=== PATIENT | male | born 1955 | race African-American/Black ===

== ENCOUNTER 2021-08-07 19:08 | Observation (INO) ==
--- NOTE | 2021-08-07 19:38 | Emergency Department Note ---
History of Present Illness General Chief complaint: Chest Pain Stated complaint: CHEST PAIN Time Seen by Provider: 08/07/21 19:20 Source: patient and RN notes reviewed Mode of arrival: EMS Limitations: no limitations History of Present Illness This patient is a 66-year-old male who was brought in from [facility] after having substernal chest pain starting around 530. He does have an extensive cardiac history including LA and stents and SVT. He said he has been feeling well lately and was sitting down reading a book when his chest started hurting he got very diaphoretic he described as pressure there is no radiation is no shortness of breath. They did an EKG which showed a regular complex tachycardia at a rate of 144 it does look narrow. Is likely SVT although could be a flutter. He was given aspirin and nitroglycerin x2 prior to arrival he converted and is now in normal sinus rhythm with a rate of 70 and has no chest pain or shortness of breath. He tells me his last stent was in June at [facility]. He denies any recent illness fever chills or cough no lower extremity pain or swelling he said the Covid vaccine has been tested multiple times recently and has not had Covid. No rash. No fall or trauma. 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 Home Medications Medication Instructions Recorded Confirmed Type aspirin 81 mg tablet,delayed 81 mg PO DAILY 08/07/21 08/07/21 History release (Aspirin Low Dose) atorvastatin 40 mg tablet 40 mg PO PM 08/07/21 08/07/21 History bisacodyl 5 mg tablet 20 mg PO DAILY 08/07/21 08/07/21 History calcium polycarbophil 625 mg 1,250 mg PO BID 08/07/21 08/07/21 History tablet (Fiber-Lax) ferrous sulfate 325 mg (65 mg 325 mg PO BID 08/07/21 08/07/21 History iron) tablet insulin NPH-regular 70-30 U-100 40 unit SUBCUT BID 08/07/21 08/07/21 History insulin 100 unit/mL subcutaneous pen (Novolin 70-30 FlexPen U-100 Insulin) isosorbide mononitrate 60 mg 60 mg PO DAILY 08/07/21 08/07/21 History tablet,extended release 24 hr lisinopril 20 mg tablet 20 mg PO DAILY 08/07/21 08/07/21 History metformin 1,000 mg tablet 1,000 mg PO BID 08/07/21 08/07/21 History metoprolol tartrate 25 mg tablet 12.5 mg PO BID 08/07/21 08/07/21 History nitroglycerin 0.4 mg sublingual 0.4 mg SUBLINGUAL UD 08/07/21 08/07/21 History tablet omeprazole 40 mg capsule,delayed 40 mg PO DAILY 08/07/21 08/07/21 History release ranolazine 500 mg tablet,extended 500 mg PO BID 08/07/21 08/07/21 History release,12 hr ticagrelor 90 mg tablet (Brilinta) 90 mg PO BID 08/07/21 08/07/21 History vitamin B complex 1 cap PO DAILY 08/07/21 08/07/21 History Allergies Allergy/AdvReac Type Severity Reaction Status Date / Time sulfamethoxazole Allergy Unknown Unverified 08/07/21 19:33 [From Bactrim] trimethoprim [From Bactrim] Allergy Unknown Unverified 08/07/21 19:33 Past Med/Surg History Social History Smoking Status: Never smoker Preferred Language: Romansh Feels Safe at Home: Yes Immunizations: Past medical historycardiac disease, stents, diabetes, hypertension, SVT AllergiesBactrim Social historyhe is a inmate at [facility] Review of Systems A total of 10 systems reviewed and were otherwise negative Physical Exam Vital Signs Vital Signs - 24 hr 08/07/21 19:15 08/07/21 19:30 08/07/21 19:47 Temperature 37.1 C Temperature Source Oral Pulse Rate 73 69 Pulse Rate from SpO2 Sensor 69 Pulse Rhythm Regular Respiratory Rate 20 16 Respiratory Effort / Characteristics Non-Labored Spontaneous Respiratory Depth Normal Respiratory Pattern Regular Blood Pressure 144/77 H 136/74 Blood Pressure Mean 99 94 Blood Pressure Position Lying Pulse Oximetry 99 99 99 Oxygen Delivery Method Room Air Room Air Room Air Sepsis Recent Fever Within 48 Hours No Sepsis New/Unexplained Change in Mental Status No Sepsis Action Taken by Nursing No Action Required 08/07/21 20:00 08/07/21 20:30 08/07/21 21:00 Temperature Temperature Source Pulse Rate 67 66 66 Pulse Rate from SpO2 Sensor 67 66 64 Pulse Rhythm Respiratory Rate 17 16 17 Respiratory Effort / Characteristics Respiratory Depth Respiratory Pattern Blood Pressure 142/77 H 126/71 111/71 Blood Pressure Mean 98 89 84 Blood Pressure Position Pulse Oximetry 99 100 100 Oxygen Delivery Method Room Air Room Air Room Air Sepsis Recent Fever Within 48 Hours Sepsis New/Unexplained Change in Mental Status Sepsis Action Taken by Nursing 08/07/21 21:30 08/07/21 23:01 Temperature Temperature Source Pulse Rate 67 71 Pulse Rate from SpO2 Sensor 67 71 Pulse Rhythm Respiratory Rate 21 18 Respiratory Effort / Characteristics Respiratory Depth Respiratory Pattern Blood Pressure 140/78 138/71 Blood Pressure Mean 98 93 Blood Pressure Position Pulse Oximetry 100 99 Oxygen Delivery Method Room Air Room Air Sepsis Recent Fever Within 48 Hours Sepsis New/Unexplained Change in Mental Status Sepsis Action Taken by Nursing General: Well developed well nourished middle-age male who appears in no acute distress, breathing comfortably on room air. Normal speech HEENT: Normal cephalic atraumatic. Pupils are equal round and reactive to light. Extraocular movements are intact. Oropharynx is pink with moist mucous membranes. No swelling of the mouth lips or tongue. Neck: Supple with a midline trachea. No meningeal signs or stiffness, no JVD or bruits. No Stridor. Chest: Clear to auscultation bilaterally. No wheezes or rhonchi. No increased work of breathing. Heart: Regular rate and rhythm without murmurs or gallops. Abdomen: Soft nontender, nondistended without rebound guarding or rigidity. Extremities: No cyanosis clubbing or edema. No calf tenderness or assymetry Spine/Back. Non tender to palpation. No CVA tenderness Skin: Good turgor without rashes. Neurologic exam: Cranial nerves two through 12 are intact. Motor and sensation are intact and symmetrical throughout. Medical Decision Making Differential Diagnosis Acute coronary syndrome, arrhythmia, electrolyte or metabolic abnormality, CHF Medical Records Attestation: I reviewed the patient's medical records. Home Medications Current Medication List: was personally reviewed by me Laboratory Data Attestation: I reviewed the patient's lab results. Result diagrams: 08/07/21 19:52 08/07/21 19:52 Lab Results 08/07/21 08/07/21 08/07/21 Range/Units 19:52 19:52 19:52 WBC 5.70 (4.8-10.8) K/uL RBC 4.35 L (4.7-6.1) M/uL Hgb 10.6 L (14.0-18.0) g/dL Hct 33.3 L (42-52) % MCV 76.6 L (80-100) fL MCH 24.4 L (25-34) pg MCHC 31.8 L (32-36) g/dL RDW Std Deviation 44.3 (36.4-46.3) fL RDW Coeff of Berry 15.7 H (11.5-14.5) % Plt Count 254 (130-400) K/uL MPV 9.6 (7.4-10.4) fL Immature Gran % (Auto) 0.4 % Neut % (Auto) 53.2 % Lymph % (Auto) 34.4 % Lyman % (Auto) 8.8 % Eos % (Auto) 3.0 % Baso % (Auto) 0.2 % Neut # (Auto) 3.04 (1.4-6.5) K/uL Lymph # (Auto) 1.96 (1.2-3.4) K/uL Lyman # (Auto) 0.50 (0.11-0.59) K/uL Eos # (Auto) 0.17 (0-0.5) K/uL Baso # (Auto) 0.01 (0-0.2) K/uL Immature Gran # (Auto) 0.02 (0.00-0.02) K/uL PT 9.9 (9.0-12.0) Seconds INR 1.0 (0.9-1.1) APTT 24.6 (21.0-31.0) Seconds PTT Ratio 0.9 Sodium 140 (136-145) mmol/L Potassium 4.5 (3.5-5.1) mmol/L Chloride 110 H (98-107) mmol/L Carbon Dioxide 27 (21-32) mmol/L Anion Gap 3.0 (3-11) BUN 19 H (7-18) mg/dl Creatinine 1.75 H (0.6-1.4) mg/dl Est Cr Clr Drug Dosing Not Reportable Est GFR ( Amer) 45.7 ml/min Est GFR (Non-Af Amer) 39.4 ml/min BUN/Creatinine Ratio 11.1 (10-20) Glucose 160 H (70-99) mg/dl Calcium 8.8 (8.5-10.1) mg/dl Magnesium (1.8-2.4) mg/dl Total Bilirubin 0.4 (0.2-1) mg/dl AST 24 (15-37) U/L ALT 20 (12-78) U/L Alkaline Phosphatase 61 (45-117) U/L Troponin I < 0.015 (0-0.045) ng/ml Total Protein 7.7 (6.4-8.2) gm/dl Albumin 3.7 (3.4-5.0) gm/dl Globulin 4.0 (2.5-4.0) gm/dl Albumin/Globulin Ratio 0.9 (0.9-2) Lipase 270 (73-393) U/L TSH (0.300-4.500) uIu/ml COVID-19 Eval Order SARS-CoV-2 (PCR) (Negative) 08/07/21 08/07/21 08/07/21 Range/Units 19:52 22:20 22:20 WBC (4.8-10.8) K/uL RBC (4.7-6.1) M/uL Hgb (14.0-18.0) g/dL Hct (42-52) % MCV (80-100) fL MCH (25-34) pg MCHC (32-36) g/dL RDW Std Deviation (36.4-46.3) fL RDW Coeff of Berry (11.5-14.5) % Plt Count (130-400) K/uL MPV (7.4-10.4) fL Immature Gran % (Auto) % Neut % (Auto) % Lymph % (Auto) % Lyman % (Auto) % Eos % (Auto) % Baso % (Auto) % Neut # (Auto) (1.4-6.5) K/uL Lymph # (Auto) (1.2-3.4) K/uL Lyman # (Auto) (0.11-0.59) K/uL Eos # (Auto) (0-0.5) K/uL Baso # (Auto) (0-0.2) K/uL Immature Gran # (Auto) (0.00-0.02) K/uL PT (9.0-12.0) Seconds INR (0.9-1.1) APTT (21.0-31.0) Seconds PTT Ratio Sodium (136-145) mmol/L Potassium (3.5-5.1) mmol/L Chloride (98-107) mmol/L Carbon Dioxide (21-32) mmol/L Anion Gap (3-11) BUN (7-18) mg/dl Creatinine (0.6-1.4) mg/dl Est Cr Clr Drug Dosing Est GFR ( Amer) ml/min Est GFR (Non-Af Amer) ml/min BUN/Creatinine Ratio (10-20) Glucose (70-99) mg/dl Calcium (8.5-10.1) mg/dl Magnesium 2.1 (1.8-2.4) mg/dl Total Bilirubin (0.2-1) mg/dl AST (15-37) U/L ALT (12-78) U/L Alkaline Phosphatase (45-117) U/L Troponin I (0-0.045) ng/ml Total Protein (6.4-8.2) gm/dl Albumin (3.4-5.0) gm/dl Globulin (2.5-4.0) gm/dl Albumin/Globulin Ratio (0.9-2) Lipase (73-393) U/L TSH 0.425 (0.300-4.500) uIu/ml COVID-19 Eval Order Covid19 at [facility] SARS-CoV-2 (PCR) NEGATIVE (Negative) 08/07/21 Range/Units 22:54 WBC (4.8-10.8) K/uL RBC (4.7-6.1) M/uL Hgb (14.0-18.0) g/dL Hct (42-52) % MCV (80-100) fL MCH (25-34) pg MCHC (32-36) g/dL RDW Std Deviation (36.4-46.3) fL RDW Coeff of Berry (11.5-14.5) % Plt Count (130-400) K/uL MPV (7.4-10.4) fL Immature Gran % (Auto) % Neut % (Auto) % Lymph % (Auto) % Lyman % (Auto) % Eos % (Auto) % Baso % (Auto) % Neut # (Auto) (1.4-6.5) K/uL Lymph # (Auto) (1.2-3.4) K/uL Lyman # (Auto) (0.11-0.59) K/uL Eos # (Auto) (0-0.5) K/uL Baso # (Auto) (0-0.2) K/uL Immature Gran # (Auto) (0.00-0.02) K/uL PT (9.0-12.0) Seconds INR (0.9-1.1) APTT (21.0-31.0) Seconds PTT Ratio Sodium (136-145) mmol/L Potassium (3.5-5.1) mmol/L Chloride (98-107) mmol/L Carbon Dioxide (21-32) mmol/L Anion Gap (3-11) BUN (7-18) mg/dl Creatinine (0.6-1.4) mg/dl Est Cr Clr Drug Dosing Est GFR ( Amer) ml/min Est GFR (Non-Af Amer) ml/min BUN/Creatinine Ratio (10-20) Glucose (70-99) mg/dl Calcium (8.5-10.1) mg/dl Magnesium (1.8-2.4) mg/dl Total Bilirubin (0.2-1) mg/dl AST (15-37) U/L ALT (12-78) U/L Alkaline Phosphatase (45-117) U/L Troponin I < 0.015 (0-0.045) ng/ml Total Protein (6.4-8.2) gm/dl Albumin (3.4-5.0) gm/dl Globulin (2.5-4.0) gm/dl Albumin/Globulin Ratio (0.9-2) Lipase (73-393) U/L TSH (0.300-4.500) uIu/ml COVID-19 Eval Order SARS-CoV-2 (PCR) (Negative) Imaging Data Attestation: I personally reviewed and interpreted this imaging study as follows: My Impression: Chest x-rayno acute infiltrate, failure, pneumothorax seen Radiologist's Impression: Chest X-Ray 08/07/21 19:30 XR chest 1V portable INDICATION: MN ^Y ^Chest Pain . TECHNIQUE: Single frontal radiograph of the chest was obtained. Comparison: None available at the time of this dictation. FINDINGS: No lines and tubes are seen. The cardiomediastinal silhouette is normal. The lungs are clear. No evidence of pleural effusion or pneumothorax. IMPRESSION: No acute chest disease. ACT 112: Negative or not required by law. Electronically signed by: Blu Jurado M.D. 08/07/2021 7:46 PM ECG Data Attestation: I personally reviewed and interpreted this ECG as follows: Indication: + chest pain Rate (beats per minute): 69 Rhythm: + normal sinus ECG Intervals/blocks: + Normal QRS, + Normal QT and + Normal DE ECG ST segments: + Nonspecific ST abnormalities ECG Findings: no PACs or no PVCs Comparison ECG Date: no prior available MDM Narrative This patient comes in after having chest pain and a rapid heart rate he is feeling better now. He does have an extensive cardiac history. 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 He has received aspirin nitroglycerin prior to arrival. IV access established, EKG, chest x-ray, and multiple blood test was obtained. He was reassessed frequently. EKG does not show any definite is chemia. When compared the EKG to the one done in [place] it is significantly improved he was in a narrow complex tachycardia which was likely SVT but could have been a flutter. It was definitely regular and narrow. He is remained stable his troponin is normal here. His chest x-ray does not suggest congestive heart failure pneumonia or pneumothorax he has no acute electrolyte or metabolic abnormalities. Given his cardiac history I do think he needs to be admitted/observe for cardiac evaluation and monitoring. I have consulted Dr. Ribera who saw the patient in ER for these measures Continuous cardiac monitoring: An order was placed in EMR for continuous cardiac monitoring. Upon my interpretation he was noted to be in normal sinus rhythm with a pulse of 70 Impression & Plan Chest pain, SVT (supraventricular tachycardia), History of coronary artery disease, Lab test negative for COVID-19 virus Discharge Plan Visit Data Chief Complaint: Chest Pain Stated Complaint: CHEST PAIN ED Provider: Justice Cardoso Discharge Problem: Chest pain, SVT (supraventricular tachycardia), History of coronary artery disease, Lab test negative for COVID-19 virus Forms Stand Alone Forms: My [facility] Prescriptions Prescriptions: No Action atorvastatin 40 mg Tablet 40 mg PO PM RF: 0 lisinopril 20 mg Tablet 20 mg PO DAILY RF: 0 omeprazole 40 mg Capsule,Delayed Release(Dr/Ec) 40 mg PO DAILY RF: 0 aspirin [Aspirin Low Dose] 81 mg Tablet,Delayed Release (Dr/Ec) 81 mg PO DAILY RF: 0 isosorbide mononitrate 60 mg Tablet Extended Release 24 Hr 60 mg PO DAILY RF: 0 ferrous sulfate 325 mg (65 mg iron) Tablet 325 mg PO BID RF: 0 metformin 1,000 mg Tablet 1,000 mg PO BID RF: 0 calcium polycarbophil [Fiber-Lax] 625 mg Tablet 1,250 mg PO BID RF: 0 nitroglycerin 0.4 mg Tablet, Sublingual 0.4 mg sublingual UD RF: 0 vitamin B complex Capsule 1 cap PO DAILY RF: 0 bisacodyl 5 mg Tablet 20 mg PO DAILY RF: 0 metoprolol tartrate 25 mg Tablet 12.5 mg PO BID RF: 0 Novolin 70-30 FlexPen U-100 100 unit/mL (70-30) Insulin Pen 40 unit SUBCUT BID RF: 0 ranolazine 500 mg Tablet Extended Release 12 Hr 500 mg PO BID RF: 0 Brilinta 90 mg Tablet 90 mg PO BID RF: 0 Referrals Referrals: Perez SOLIS [Primary Care Provider] - Discharge Problem: Chest pain Qualifiers: Chest pain type: precordial pain Qualified Code(s): R07.2 - Precordial pain
--- NOTE | 2021-08-07 19:48 | XRay Report ---
XR chest 1V portable INDICATION: MN ^Y ^Chest Pain . TECHNIQUE: Single frontal radiograph of the chest was obtained. Comparison: None available at the time of this dictation. FINDINGS: No lines and tubes are seen. The cardiomediastinal silhouette is normal. The lungs are clear. No evid ence of pleural effusion or pneumothorax. IMPRESSION: No acute chest disease. ACT 112: Negative or not required by law. Electronically signed by: Blu Jurado M.D. 08/07/2021 7:46 PM
[2021-08-07 20:08] LABS: Basophils # (auto) 0.01 K/uL (0-0.2); Basophils % (auto) 0.2 %; Eosinophils # (auto) 0.17 K/uL (0-0.5); Hematocrit (blood only) 33.3 % (42-52); Hemoglobin 10.6 g/dL (14.0-18.0); Immature Granulocytes # (auto) 0.02 K/uL (0.00-0.02); Immature Granulocytes % (auto) 0.4 %; Lymphocytes # (auto) 1.96 K/uL (1.2-3.4); Lymphocytes % (auto) 34.4 %; Mean Corpuscular Hemoglobin 24.4 pg (25-34); Mean Corpuscular Hgb Conc 31.8 g/dL (32-36); Mean Corpuscular Volume 76.6 fL (80-100); Mean Platelet Volume 9.6 fL (7.4-10.4); Monocytes % (auto) 8.8 %; Neutrophils # (auto) 3.04 K/uL (1.4-6.5); Neutrophils % (auto) 53.2 %; Platelet Count 254 K/uL (130-400); RDW Coefficient of Variation 15.7 % (11.5-14.5); RDW Standard Deviation 44.3 fL (36.4-46.3); Red Blood Count 4.35 M/uL (4.7-6.1)
[2021-08-07 20:19] LABS: Partial Thromboplastin Ratio 0.9; Partial Thromboplastin Time 24.6 Seconds (21.0-31.0); Prothrombin Time 9.9 Seconds (9.0-12.0)
[2021-08-07 20:25] LABS: Alanine Aminotransferase 20 U/L (12-78); Albumin Level 3.7 gm/dl (3.4-5.0); Aspartate Aminotransferase 24 U/L (15-37); BUN Creatinine Ratio 11.1 (10-20); Blood Urea Nitrogen 19 mg/dl (7-18); Calcium 8.8 mg/dl (8.5-10.1); Carbon Dioxide 27 mmol/L (21-32); Chloride 110 mmol/L (98-107); Est GFR (African American) 45.7 ml/min; Est GFR (Non-African American) 39.4 ml/min; Glucose 160 mg/dl (70-99); Lipase 270 U/L (73-393); Potassium 4.5 mmol/L (3.5-5.1); Sodium 140 mmol/L (136-145)
[2021-08-07 20:30] LABS: Albumin Globulin Ratio 0.9 (0.9-2); Alkaline Phosphatase 61 U/L (45-117); Bilirubin,Total 0.4 mg/dl (0.2-1); Total Protein 7.7 gm/dl (6.4-8.2); Troponin I < 0.015 ng/ml (0-0.045)
[2021-08-07 21:24] LABS: Magnesium 2.1 mg/dl (1.8-2.4); Thyroid Stimulating Hormone 0.425 uIu/ml (0.300-4.500)
--- NOTE | 2021-08-07 21:25 | History & Physical Report ---
Date of Service August 07, 2021 Assessment & Plan (1) Chest pain: Plan: ACS vs tachyarrhythmia (PSVT) hx CAD status post stent hypertension, slight elevated hyperlipidemia, on statin Rx ARF, unknown duration DM2 insulin requiring, unknown baseline control chronic anemia, unknown baseline colon cancer status post surgery OBS PCU Follow troponin TTE, cardiology consult Re: Chest pain Retrieve recent outpatient records from patient's photographers' model (Dr. Fernandez). Basal insulin, ISS BG goal 1 10-1 40, check hemoglobin A1c Check lipid profile DVT prophylaxis. Heparin subcu Full code Text document was generated using [employer] voice recognition software. It may contain grammatical or spelling errors. Kindly contact undersigned for clarification of any documentation item in question. History of Present Illness Chief Complaint: Chest pain Primary Care Provider: IRMA Todd History obtained from patient and records. Medical history significant for CAD status post stent, hypertension, hyperlipidemia, PSVT, DM2 insulin requiring, chronic anemia (unknown baseline), colon cancer status post surgery, GERD. Patient was reading a book in [place] today when he noted substernal pain described as pressure like causing him to belch accompanied by diaphoresis and sweatiness. No cough, no shortness of breath. Symptoms are reminiscent of heart attack episode. Last episode was a few weeks ago. Patient's photographers' model from [place] contemplating putting a "heart monitor on him" for fast heartbeat. Narrow complex tachycardia on EKG done at the [facility] as per documentation. Chest pain relieved by aspirin and nitroglycerin administered at the present. Patient currently comfortable. Medical History as above Surgical History : Bowel surgery Family History : DM Personal/Social history : Non-smoker, no EtOH intake, prior work as a [employer] Allergies Allergy/AdvReac Type Severity Reaction Status Date / Time sulfamethoxazole Allergy Unknown Unverified 08/07/21 19:33 [From Bactrim] trimethoprim [From Bactrim] Allergy Unknown Unverified 08/07/21 19:33 Home Medications Medication Instructions Recorded Confirmed Type aspirin 81 mg tablet,delayed 81 mg PO DAILY 08/07/21 08/07/21 History release (Aspirin Low Dose) atorvastatin 40 mg tablet 40 mg PO PM 08/07/21 08/07/21 History bisacodyl 5 mg tablet 20 mg PO DAILY 08/07/21 08/07/21 History calcium polycarbophil 625 mg 1,250 mg PO BID 08/07/21 08/07/21 History tablet (Fiber-Lax) ferrous sulfate 325 mg (65 mg 325 mg PO BID 08/07/21 08/07/21 History iron) tablet insulin NPH-regular 70-30 U-100 40 unit SUBCUT BID 08/07/21 08/07/21 History insulin 100 unit/mL subcutaneous pen (Novolin 70-30 FlexPen U-100 Insulin) isosorbide mononitrate 60 mg 60 mg PO DAILY 08/07/21 08/07/21 History tablet,extended release 24 hr lisinopril 20 mg tablet 20 mg PO DAILY 08/07/21 08/07/21 History metformin 1,000 mg tablet 1,000 mg PO BID 08/07/21 08/07/21 History metoprolol tartrate 25 mg tablet 12.5 mg PO BID 08/07/21 08/07/21 History nitroglycerin 0.4 mg sublingual 0.4 mg SUBLINGUAL UD 08/07/21 08/07/21 History tablet omeprazole 40 mg capsule,delayed 40 mg PO DAILY 08/07/21 08/07/21 History release ranolazine 500 mg tablet,extended 500 mg PO BID 08/07/21 08/07/21 History release,12 hr ticagrelor 90 mg tablet (Brilinta) 90 mg PO BID 08/07/21 08/07/21 History vitamin B complex 1 cap PO DAILY 08/07/21 08/07/21 History Past Med/Surg History Social History Smoking Status: Never smoker Preferred Language: Anguill[place] Feels Safe at Home: Yes Review of Systems Review of Systems: As per HPI, all 10 systems reviewed, all other ROS negative Physical Exam Physical Exam: GENERAL: Comfortable, obese, pleasant, no respiratory distress SKIN: Pallor, warm HEENT: Pale palpebral conjunctivae, no ptosis, moist buccal mucosa NECK : Supple, short neck, no tenderness CHEST : CTA, no tenderness HEART : RRR, no obvious murmurs ABDOMEN: Some distention, nontender EXTREMITIES : Minimal LE swelling, no LE tenderness, no other conspicuous deformities noted NEUROLOGIC : Coherent, no facial asymmetry, no other gross focality Results & Data Results & Data ([facility]) Vital Signs (Past 12 Hours) Vital Signs Temp Pulse Resp BP Pulse Ox 08/07/21 19:47 99 08/07/21 19:15 37.1 C 73 20 144/77 H 99 Laboratory Results Laboratory Results WBC 5.70 K/uL (4.8-10.8) 08/07/21 19:52 RBC 4.35 M/uL (4.7-6.1) L 08/07/21 19:52 Hgb 10.6 g/dL (14.0-18.0) L 08/07/21 19:52 Hct 33.3 % (42-52) L 08/07/21 19:52 MCV 76.6 fL (80-100) L 08/07/21 19:52 MCH 24.4 pg (25-34) L 08/07/21 19:52 MCHC 31.8 g/dL (32-36) L 08/07/21 19:52 RDW Std Deviation 44.3 fL (36.4-46.3) 08/07/21 19:52 RDW Coeff of Berry 15.7 % (11.5-14.5) H 08/07/21 19:52 Plt Count 254 K/uL (130-400) 08/07/21 19:52 MPV 9.6 fL (7.4-10.4) 08/07/21 19:52 Immature Gran % (Auto) 0.4 % 08/07/21 19:52 Neut % (Auto) 53.2 % 08/07/21 19:52 Lymph % (Auto) 34.4 % 08/07/21 19:52 Crowley % (Auto) 8.8 % 08/07/21 19:52 Eos % (Auto) 3.0 % 08/07/21 19:52 Baso % (Auto) 0.2 % 08/07/21 19:52 Neut # (Auto) 3.04 K/uL (1.4-6.5) 08/07/21 19:52 Lymph # (Auto) 1.96 K/uL (1.2-3.4) 08/07/21 19:52 Crowley # (Auto) 0.50 K/uL (0.11-0.59) 08/07/21 19:52 Eos # (Auto) 0.17 K/uL (0-0.5) 08/07/21 19:52 Baso # (Auto) 0.01 K/uL (0-0.2) 08/07/21 19:52 Immature Gran # (Auto) 0.02 K/uL (0.00-0.02) 08/07/21 19:52 PT 9.9 Seconds (9.0-12.0) 08/07/21 19:52 INR 1.0 (0.9-1.1) 08/07/21 19:52 APTT 24.6 Seconds (21.0-31.0) 08/07/21 19:52 PTT Ratio 0.9 08/07/21 19:52 Sodium 140 mmol/L (136-145) 08/07/21 19:52 Potassium 4.5 mmol/L (3.5-5.1) 08/07/21 19:52 Chloride 110 mmol/L (98-107) H 08/07/21 19:52 Carbon Dioxide 27 mmol/L (21-32) 08/07/21 19:52 Anion Gap 3.0 (3-11) 08/07/21 19:52 BUN 19 mg/dl (7-18) H 08/07/21 19:52 Creatinine 1.75 mg/dl (0.6-1.4) H 08/07/21 19:52 Est Cr Clr Drug Dosing Not Reportable 08/07/21 19:52 Est GFR ( Amer) 45.7 ml/min 08/07/21 19:52 Est GFR (Non-Af Amer) 39.4 ml/min 08/07/21 19:52 BUN/Creatinine Ratio 11.1 (10-20) 08/07/21 19:52 Glucose 160 mg/dl (70-99) H 08/07/21 19:52 Calcium 8.8 mg/dl (8.5-10.1) 08/07/21 19:52 Magnesium 2.1 mg/dl (1.8-2.4) 08/07/21 19:52 Total Bilirubin 0.4 mg/dl (0.2-1) 08/07/21 19:52 AST 24 U/L (15-37) 08/07/21 19:52 ALT 20 U/L (12-78) 08/07/21 19:52 Alkaline Phosphatase 61 U/L (45-117) 08/07/21 19:52 Troponin I < 0.015 ng/ml (0-0.045) 08/07/21 19:52 Total Protein 7.7 gm/dl (6.4-8.2) 08/07/21 19:52 Albumin 3.7 gm/dl (3.4-5.0) 08/07/21 19:52 Globulin 4.0 gm/dl (2.5-4.0) 08/07/21 19:52 Albumin/Globulin Ratio 0.9 (0.9-2) 08/07/21 19:52 Lipase 270 U/L (73-393) 08/07/21 19:52 TSH 0.425 uIu/ml (0.300-4.500) 08/07/21 19:52 Impressions Chest X-Ray 08/07/21 19:30 XR chest 1V portable INDICATION: MN ^Y ^Chest Pain . TECHNIQUE: Single frontal radiograph of the chest was obtained. Comparison: None available at the time of this dictation. FINDINGS: No lines and tubes are seen. The cardiomediastinal silhouette is normal. The lungs are clear. No evidence of pleural effusion or pneumothorax. IMPRESSION: No acute chest disease. ACT 112: Negative or not required by law. Electronically signed by: Blu Jurado M.D. 08/07/2021 7:46 PM Diagnostic Findings EKG as per my interpretation : Rate 70, NSR, normal axis, T wave abnormalities lateral leads (1) Chest pain Chest pain type: precordial pain Qualified Code(s): R07.2 - Precordial pain
[2021-08-07] MEDS ORDERED: SODIUM CHLORIDE 0.9% 1000ML 1,000 ML IV ONE (21:29)
[2021-08-08] MEDS ORDERED: POLYETHYLENE (MIRALAX) 17 GM PACK PO PRN ×2 (00:54→05:21)
[2021-08-08] MEDS ORDERED: DOCUSATE SODIUM/SENNA 50/8.6MG TAB PO SCH (00:55)
[2021-08-08] MEDS ORDERED: PROMETHAZINE HCL 12.5 MG in SODIUM CHLORIDE 0.9% 50 ML IV PRN (04:52)
[2021-08-08] MEDS ORDERED: HYDROmorphone INJ 0.5 MG/0.5 ML SYR IV PRN (04:52)
[2021-08-08] MEDS ORDERED: CARBOHYDRATES FOR HYPOGLYCEMIA PO PRN (04:52)
[2021-08-08] MEDS ORDERED: LORazepam 0.5 MG/1 ML VIAL IV PRN (04:52)
[2021-08-08] MEDS ORDERED: ACETAMINOPHEN 325 MG TAB PO PRN (04:52)
[2021-08-08] MEDS ORDERED: GLUCAGON FOR INJ 1 MG VIAL SQ PRN (04:52)
[2021-08-08] MEDS ORDERED: GLUCOSE 10 TABS/TUBE PO PRN (04:52)
[2021-08-08] MEDS ORDERED: traMADol HCL 50 MG TABLET PO PRN (04:52)
[2021-08-08] MEDS ORDERED: GLUCOSE 40% GEL 15 GM TUBE PO PRN (04:52)
[2021-08-08] MEDS ORDERED: DEXTROSE 50% 50 ML SYRINGE IV PRN (04:52)
[2021-08-08] MEDS ORDERED: NITROGLYCERIN SL 0.4 MG/TAB TAB SL PRN (04:52)
[2021-08-08] MEDS: HEPARIN SOD 5,000 UNIT/0.5 ML VIAL SQ SCH ×3 (06:16→22:27)
[2021-08-08 08:12] LABS: Basophils # (auto) 0.02 K/uL (0-0.2); Basophils % (auto) 0.3 %; Eosinophils # (auto) 0.19 K/uL (0-0.5); Eosinophils % (auto) 3.1 %; Hematocrit (blood only) 34.8 % (42-52); Hemoglobin 10.8 g/dL (14.0-18.0); Immature Granulocytes # (auto) 0.01 K/uL (0.00-0.02); Immature Granulocytes % (auto) 0.2 %; Lymphocytes # (auto) 2.08 K/uL (1.2-3.4); Mean Corpuscular Volume 77.3 fL (80-100); Monocytes # (auto) 0.55 K/uL (0.11-0.59); Neutrophils # (auto) 3.27 K/uL (1.4-6.5); Neutrophils % (auto) 53.4 %; Platelet Count 266 K/uL (130-400); RDW Coefficient of Variation 15.8 % (11.5-14.5); RDW Standard Deviation 44.7 fL (36.4-46.3); White Blood Count 6.12 K/uL (4.8-10.8)
[2021-08-08 08:21] LABS: Partial Thromboplastin Time 25.9 Seconds (21.0-31.0)
[2021-08-08 08:38] LABS: BUN Creatinine Ratio 11.2 (10-20); Blood Urea Nitrogen 17 mg/dl (7-18); Calcium 8.8 mg/dl (8.5-10.1); Carbon Dioxide 25 mmol/L (21-32); Chloride 108 mmol/L (98-107); Est GFR (African American) 53.7 ml/min; Est GFR (Non-African American) 46.4 ml/min; Glucose 128 mg/dl (70-99); Potassium 4.4 mmol/L (3.5-5.1); Sodium 141 mmol/L (136-145)
[2021-08-08 08:43] LABS: Troponin I < 0.015 ng/ml (0-0.045)
[2021-08-08] MEDS ORDERED: BISACODYL 5 MG PO SCH (09:00)
[2021-08-08] MEDS ORDERED: INSULIN GLARGINE SOLOSTAR 100 UNITS/ML 3 ML PEN SQ SCH (09:00)
[2021-08-08] MEDS: INSULIN GLARGINE SOLOSTAR 100 UNITS/ML 3 ML PEN SQ SCH ×2 (09:28→20:10)
[2021-08-08] MEDS: INSULIN ASPART 100 UNITS/ML 3 ML PEN SC SCH ×4 (09:28→20:10)
[2021-08-08] MEDS: TICAGRELOR 90 MG TAB PO SCH ×2 (09:29→20:06)
[2021-08-08] MEDS: PANTOprazole 40 MG TAB PO SCH (09:29)
[2021-08-08] MEDS: METOPROLOL TARTRATE 25 MG TAB PO SCH ×2 (09:29→20:07)
[2021-08-08] MEDS: VITAMIN B COMPLEX TAB PO SCH (09:29)
[2021-08-08] MEDS: RANOLAZINE 500 MG ER TAB PO SCH ×2 (09:29→20:06)
[2021-08-08] MEDS: ASPIRIN 81 MG ECTAB PO SCH (09:30)
[2021-08-08] MEDS: FERROUS SULFATE 325 MG TAB PO SCH ×2 (09:30→20:06)
[2021-08-08] MEDS: DOCUSATE SODIUM/SENNA 50/8.6MG TAB PO SCH ×2 (09:30→20:08)
[2021-08-08] MEDS: ISOSORBIDE MONO EXTENDED REL 60 MG TABCR PO SCH (09:30)
[2021-08-08 10:07] LABS: Appearance Urine Clear (Clear); Bacteria Urine Automated Negative (Negative); Bilirubin Urine Negative (Negative); Blood Urine Negative (Negative); Color Urine Yellow; Epithelial Cell Urine Auto 0-5 /lpf (0-5); Glucose Urine UA 1+ (Negative); Ketones Urine Negative (Negative); Leukocyte Esterase Urine Negative (Negative); Nitrite Urine Negative (Negative); Protein Urine 1+ (Negative); RBC Urine Automated 0-4 /hpf (0-4); Specific Gravity Urine 1.019 (1.000-1.030); Urobilinogen Urine Negative (Negative); WBC Urine Automated 0 /hpf (0-5); pH Urine 5.5 (4.5-7.5)
--- NOTE | 2021-08-08 10:27 | Cardiology Consultation ---
Date of Consultation August 08, 2021 Assessment & Plan (1) Chest pain: (2) SVT (supraventricular tachycardia): (3) History of coronary artery disease: (4) History of coronary artery stent placement: (5) Aortic valve sclerosis: 66-year-old patient with history of coronary disease and possible supraventricular tachycardia presents with chest discomfort. Symptoms suggesting possible paroxysmal tachydysrhythmia prompting anginal symptoms. His cardiac enzymes are undetectable. Baseline ECG with T wave inversion in lead I and aVL, however, no prior ECGs available for comparison. No regional wall motion abnormalities on echocardiogram. Per discussion with patient there is a possible plan for implantable loop recorder. I have contacted his outpatient power saw mechanic office, Dr. Fernandez, regarding records. Obtain records from [facility] regard recent PCI. Continue dual antiplatelet therapy and antianginal medications including beta- nasir, isosorbide monohydrate, and Ranexa. Review records and consider referral to electrophysiology to consider EPS versus implantable loop recorder. In regard to aortic valve abnormality visualized, recommend blood cultures x2. History of Present Illness Reason for Consultation: chest pain Requesting Physician: Dr. Huizar Attending Physician: Minda Huizar MD History of Present Illness 66-year-old -Finnish patient presents to the emergency department with chest discomfort. Patient currently incarcerated. No medical records available. Reports history of percutaneous intervention with possible Rotablator therapy in June. Procedure performed at [facility] in [place]. Reports stenting in November as well. Follows with a power saw mechanic in [place], Dr. Fernandez. Patient reports that he is being considered for an implantable loop recorder at this time. He is unaware of details. Seen and examined at the bedside. Currently resting comfortably. No chest discomfort or unusual shortness of breath. Describes a chest tightness followed by palpitations and diaphoresis occurring while in snf. Chart records suggest a heart rate of 144 bpm and possible supraventricular tachycardia, however, there are no monitor strips or ECG available for review. Chronically treated with low-dose beta-nasir, long-acting nitrates, and Ranexa does suggest chronic angina. Compliant with dual antiplatelet therapy since PCI in June. Telemetry demonstrating sinus bradycardia with heart rate in the 50s. No dysrhythmias recorded overnight. Troponins are undetectable. Allergies Allergy/AdvReac Type Severity Reaction Status Date / Time sulfamethoxazole Allergy Unknown Unverified 08/07/21 19:33 [From Bactrim] trimethoprim [From Bactrim] Allergy Unknown Unverified 08/07/21 19:33 Home Medications Medication Instructions Recorded Confirmed Type aspirin 81 mg tablet,delayed 81 mg PO DAILY 08/07/21 08/07/21 History release (Aspirin Low Dose) atorvastatin 40 mg tablet 40 mg PO PM 08/07/21 08/07/21 History bisacodyl 5 mg tablet 20 mg PO DAILY 08/07/21 08/07/21 History calcium polycarbophil 625 mg 1,250 mg PO BID 08/07/21 08/07/21 History tablet (Fiber-Lax) ferrous sulfate 325 mg (65 mg 325 mg PO BID 08/07/21 08/07/21 History iron) tablet insulin NPH-regular 70-30 U-100 40 unit SUBCUT BID 08/07/21 08/07/21 History insulin 100 unit/mL subcutaneous pen (Novolin 70-30 FlexPen U-100 Insulin) isosorbide mononitrate 60 mg 60 mg PO DAILY 08/07/21 08/07/21 History tablet,extended release 24 hr lisinopril 20 mg tablet 20 mg PO DAILY 08/07/21 08/07/21 History metformin 1,000 mg tablet 1,000 mg PO BID 08/07/21 08/07/21 History metoprolol tartrate 25 mg tablet 12.5 mg PO BID 08/07/21 08/07/21 History nitroglycerin 0.4 mg sublingual 0.4 mg SUBLINGUAL UD 08/07/21 08/07/21 History tablet omeprazole 40 mg capsule,delayed 40 mg PO DAILY 08/07/21 08/07/21 History release ranolazine 500 mg tablet,extended 500 mg PO BID 08/07/21 08/07/21 History release,12 hr ticagrelor 90 mg tablet (Brilinta) 90 mg PO BID 08/07/21 08/07/21 History vitamin B complex 1 cap PO DAILY 08/07/21 08/07/21 History Patient History Social History Smoking Status: Never smoker Second Hand Exposure: Yes; Do You Dip or Chew Tobacco: No; Tobacco Cessation Education Requested by Patient: No Hx Alcohol Use: Yes Hx Substance Use: No Preferred Language: Hebrew Communication Ability: Effective 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 Beliefs That Will Affect Care: None Current Living Situation: Other Current Living Situation Comment: [facility] Other Information That Helps Us Care for You: No Feels Safe at Home: Yes Assistive Devices: Glasses Review of Systems Review of Systems: All systems reviewed & are unremarkable except as noted in Subjective Physical Exam Constitutional: well developed and well nourished; no acute distress Respiratory: normal respiratory effort and + labored breathing; no respiratory distress and no retractions Cardiovascular: Rate/Rhythm: regular rate and regular rhythm Heart Sounds: normal S1 and normal S2; no murmur and no cardiac rub Palpation: normal PMI Vessels: radial pulses present; no JVD and no carotid bruit Extremities: no edema Gastrointestinal (Abdomen): Inspection/Auscultation: abdomen normal to inspection and normal bowel sounds; abdomen not distended Percussion/Palpation: abdomen soft; abdomen nontender, no guarding and abdomen not rigid Neurologic: CN's II-XI intact bilaterally and moves all extremities; no focal motor deficits Motor/Sensory: no tremor Psychiatric: A+Ox3, euthymic affect Results & Data ([facility]) Vital Signs (Past 12 Hours) Vital Signs Temp Pulse Pulse Resp BP BP Pulse Ox 08/08/21 08:12 36.8 C 66 18 174/90 H 96 08/08/21 05:01 36.6 C 61 14 156/81 H 99 08/08/21 04:52 36.6 C 61 14 156/81 H 99 08/08/21 03:30 57 L 24 144/63 H 99 08/08/21 03:00 66 14 135/79 93 08/08/21 02:30 61 14 121/72 97 08/08/21 02:00 67 13 150/64 H 98 08/08/21 01:30 67 15 120/60 97 08/08/21 01:00 67 22 127/59 L 99 08/08/21 00:30 70 20 121/58 L 92 08/08/21 00:02 76 23 125/54 L 99 08/07/21 23:30 68 18 141/76 H 99 08/07/21 23:01 71 18 138/71 99 Pulse Ox 08/08/21 08:12 08/08/21 05:01 08/08/21 04:52 99 08/08/21 03:30 08/08/21 03:00 08/08/21 02:30 08/08/21 02:00 08/08/21 01:30 08/08/21 01:00 08/08/21 00:30 08/08/21 00:02 08/07/21 23:30 08/07/21 23:01 (1) Chest pain Chest pain type: precordial pain Qualified Code(s): R07.2 - Precordial pain
--- NOTE | 2021-08-08 11:44 | Hospitalist Progress Note ---
Date of Service August 08, 2021 Assessment & Plan (1) Chest pain: Plan: ACS vs tachyarrhythmia (PSVT) History of CAD status post stent Patient reports his primary burlesque dancer was talking about the loop recorder placement. Troponins are negative. EKG showed TWI in 1 and aVL. We will follow-up cardiology recommendations. Get records from patient and my burlesque dancer as well as [facility] where patient reported he got stent Continue home aspirin and Brilinta Continue atorvastatin, metoprolol titrate and Imdur Cardiology considering EPS versus implantable loop recorder Hypertension Controlled Continue medications DM type II Insulin per protocol Anemia, ?chronic ?CKD3 Per message relayed by halfway MD Dr. Saxena to RN, last hemoglobin was 10.8 on 06/07/2021. Last creatinine was 1.5 on 06/07/2021 and 1.75 on 08/07/2021 Cr os 1.53 today Colon cancer status post surgery DVT prophylaxis. Heparin subcu Full code Admission and Anticipated Discharge Date Admission Date: August 08, 2021 Subjective 66-year-old Man with history of CAD status post stent, hypertension, hyperlipidemia, PSVT, DM type II, chronic anemia, colon cancer status post surgery, GERD who presented from [facility] complaining of substernal chest pain. Reported he has been having about 1-2 episodes of palpitations with chest pressure and diaphoresis per month. Tracing from [facility] show sinus tachycardia with rate of 144 Patient seen and examined this morning. Denies any chest pressure at this time. Denies any cough, shortness of breath Denies any fevers, chills, nausea vomiting Denies any abdominal pain, diarrhea constipation Denies any dysuria, frequency or urgency Review of Systems Review of Systems: All systems reviewed & are unremarkable except as noted in Subjective Physical Exam Constitutional: + well hydrated; no acute distress Eyes: PERRL, conjunctivae normal, anicteric sclerae ENMT: external ear and nose normal, oropharynx normal Respiratory: normal respiratory effort, lungs clear to auscultation Cardiovascular: Rate/Rhythm: regular rate and regular rhythm Heart Sounds: normal S1 and normal S2 Gastrointestinal (Abdomen): normal bowel sounds, soft, nontender, no hepatosplenomegaly Musculoskeletal: no cyanosis or clubbing, extremities motor strength 5/5 Neurologic: PERRL, EOMI, accommodation nl, no face palsy, no dysarthria Psychiatric: A+Ox3, euthymic affect Results & Data Results & Data ([place]) Vital Signs (Past 12 Hours) Vital Signs Temp Pulse Pulse Resp BP BP Pulse Ox 08/08/21 08:12 36.8 C 66 18 174/90 H 96 08/08/21 08:00 60 08/08/21 05:01 36.6 C 61 14 156/81 H 99 08/08/21 04:52 36.6 C 61 14 156/81 H 99 08/08/21 03:30 57 L 24 144/63 H 99 08/08/21 03:00 66 14 135/79 93 08/08/21 02:30 61 14 121/72 97 08/08/21 02:00 67 13 150/64 H 98 08/08/21 01:30 67 15 120/60 97 08/08/21 01:00 67 22 127/59 L 99 08/08/21 00:30 70 20 121/58 L 92 08/08/21 00:02 76 23 125/54 L 99 Pulse Ox 08/08/21 08:12 08/08/21 08:00 08/08/21 05:01 08/08/21 04:52 99 08/08/21 03:30 08/08/21 03:00 08/08/21 02:30 08/08/21 02:00 08/08/21 01:30 08/08/21 01:00 08/08/21 00:30 08/08/21 00:02 Laboratory Results Abnormal lab results 08/07/21 08/07/21 08/08/21 Range/Units 19:52 19:52 05:58 RBC 4.35 L (4.7-6.1) M/uL Hgb 10.6 L (14.0-18.0) g/dL Hct 33.3 L (42-52) % MCV 76.6 L (80-100) fL MCH 24.4 L (25-34) pg MCHC 31.8 L (32-36) g/dL RDW Coeff of Berry 15.7 H (11.5-14.5) % Chloride 110 H (98-107) mmol/L BUN 19 H (7-18) mg/dl Creatinine 1.75 H (0.6-1.4) mg/dl Glucose 160 H (70-99) mg/dl POC Glucose 114 H (70-99) mg/dl Urine Protein (Negative) Urine Glucose (UA) (Negative) 08/08/21 08/08/21 08/08/21 Range/Units 07:23 07:23 09:50 RBC 4.50 L (4.7-6.1) M/uL Hgb 10.8 L (14.0-18.0) g/dL Hct 34.8 L (42-52) % MCV 77.3 L (80-100) fL MCH 24.0 L (25-34) pg MCHC 31.0 L (32-36) g/dL RDW Coeff of Berry 15.8 H (11.5-14.5) % Chloride 108 H (98-107) mmol/L BUN (7-18) mg/dl Creatinine 1.53 H (0.6-1.4) mg/dl Glucose 128 H (70-99) mg/dl POC Glucose (70-99) mg/dl Urine Protein 1+ H (Negative) Urine Glucose (UA) 1+ H (Negative) 08/08/21 Range/Units 12:21 RBC (4.7-6.1) M/uL Hgb (14.0-18.0) g/dL Hct (42-52) % MCV (80-100) fL MCH (25-34) pg MCHC (32-36) g/dL RDW Coeff of Berry (11.5-14.5) % Chloride (98-107) mmol/L BUN (7-18) mg/dl Creatinine (0.6-1.4) mg/dl Glucose (70-99) mg/dl POC Glucose 239 H (70-99) mg/dl Urine Protein (Negative) Urine Glucose (UA) (Negative) (1) Chest pain Chest pain type: precordial pain Qualified Code(s): R07.2 - Precordial pain
--- NOTE | 2021-08-08 19:48 | Electrocardiogram Report ---
Test Reason : Blood Pressure : / mmHG Vent. Rate : 069 BPM Atrial Rate : 069 BPM P-R Int : 142 ms QRS Dur : 090 ms QT Int : 410 ms P-R-T Axes : 053 027 111 degrees QTc Int : 439 ms Normal sinus rhythm Nonspecific ST and T wave abnormality Abnormal ECG No previous ECGs available Confirmed by Nick Viatl ([id number]) on 08/08/2021 7:47:52 PM Referred By: [facility] Confirmed By:Nick Vital
[2021-08-08] MEDS: ATORVASTATIN 40 MG TAB PO SCH (20:06)
[2021-08-09] MEDS ORDERED: METOPROLOL TARTRATE 25 MG TAB PO SCH (04:30)
[2021-08-09 04:46] LABS: Basophils # (auto) 0.03 K/uL (0-0.2); Basophils % (auto) 0.5 %; Eosinophils # (auto) 0.18 K/uL (0-0.5); Eosinophils % (auto) 2.9 %; Hematocrit (blood only) 34.1 % (42-52); Immature Granulocytes # (auto) 0.01 K/uL (0.00-0.02); Immature Granulocytes % (auto) 0.2 %; Lymphocytes # (auto) 1.98 K/uL (1.2-3.4); Lymphocytes % (auto) 31.4 %; Mean Corpuscular Hemoglobin 24.6 pg (25-34); Mean Corpuscular Hgb Conc 32.3 g/dL (32-36); Mean Corpuscular Volume 76.1 fL (80-100); Mean Platelet Volume 10.3 fL (7.4-10.4); Monocytes # (auto) 0.69 K/uL (0.11-0.59); Neutrophils # (auto) 3.41 K/uL (1.4-6.5); Platelet Count 291 K/uL (130-400); RDW Coefficient of Variation 15.7 % (11.5-14.5); RDW Standard Deviation 43.8 fL (36.4-46.3); Red Blood Count 4.48 M/uL (4.7-6.1)
[2021-08-09] MEDS: HEPARIN SOD 5,000 UNIT/0.5 ML VIAL SQ SCH ×3 (05:14→21:04)
[2021-08-09 06:08] LABS: BUN Creatinine Ratio 12.6 (10-20); Blood Urea Nitrogen 20 mg/dl (7-18); Carbon Dioxide 26 mmol/L (21-32); Chloride 108 mmol/L (98-107); Chol HDL Ratio 3; Cholesterol 127 mg/dl (0-200); Est GFR (African American) 50.9 ml/min; Est GFR (Non-African American) 43.9 ml/min; Glucose 169 mg/dl (70-99); HDL Cholesterol 37 mg/dl; LDL Cholesterol Calculated 63 mg/dl; Magnesium 1.8 mg/dl (1.8-2.4); Potassium 4.6 mmol/L (3.5-5.1); Sodium 140 mmol/L (136-145); Triglycerides 137 mg/dl (0-150); VLDL Cholesterol 27 mg/dl
[2021-08-09] MEDS ORDERED: MAGNESIUM SULFATE / D5W 1 GM/100 ML BAG IV ONE (06:30)
[2021-08-09 07:12] LABS: Estimated Average Glucose 163 mg/dl; Hemoglobin A1C 7.3 % (4.5-5.6)
[2021-08-09] MEDS: INSULIN ASPART 100 UNITS/ML 3 ML PEN SC SCH ×4 (08:33→20:52)
[2021-08-09] MEDS: ISOSORBIDE MONO EXTENDED REL 60 MG TABCR PO SCH (08:35)
[2021-08-09] MEDS: INSULIN GLARGINE SOLOSTAR 100 UNITS/ML 3 ML PEN SQ SCH ×2 (08:35→20:52)
[2021-08-09] MEDS: FERROUS SULFATE 325 MG TAB PO SCH ×2 (08:36→21:04)
[2021-08-09] MEDS: ASPIRIN 81 MG ECTAB PO SCH (08:37)
[2021-08-09] MEDS: DOCUSATE SODIUM/SENNA 50/8.6MG TAB PO SCH ×2 (08:37→21:04)
[2021-08-09] MEDS: RANOLAZINE 500 MG ER TAB PO SCH ×2 (08:37→21:05)
[2021-08-09] MEDS: PANTOprazole 40 MG TAB PO SCH (08:37)
[2021-08-09] MEDS: VITAMIN B COMPLEX TAB PO SCH (08:37)
[2021-08-09] MEDS: TICAGRELOR 90 MG TAB PO SCH ×2 (08:37→21:05)
--- NOTE | 2021-08-09 10:16 | Hospitalist Progress Note ---
Date of Service August 09, 2021 Assessment & Plan (1) Chest pain: Plan: 66-year-old Man with history of CAD status post stent, hypertension, hyperlipidemia, PSVT, DM type II, chronic anemia, colon cancer status post surgery, GERD who presented from [facility] complaining of substernal chest pain. ACS vs tachyarrhythmia (PSVT) History of CAD status post stent Patient reports his primary armored car guard and driver was talking about the loop recorder placement. Troponins are negative. EKG showed TWI in 1 and aVL. We will follow-up cardiology recommendations. Awaiting records from armored car guard and driver as well as [facility] where patient reported he got stent Pt has maintained NSR overnight HR 70-72, although he did have a 16 beat run of Vtach, asymptomatic K is 4.6, mag 1.8 - received mag sulfate - monitor, keep above 4 and 2.0 respectively Continue home aspirin and Brilinta Continue atorvastatin, metoprolol titrate, imdur and ranexa Cardiology considering EPS versus implantable loop recorder echo EF 50-55%, mild LVH, moderate sclerosis of left coronary aortic valve cusp, ? small mobile echodensity of L coronary av cusp - await cardio recs Hypertension Controlled Continue medications DM type II Insulin per protocol a1c 7.3 on 08/07/21 Anemia, ?chronic Per message relayed by fdc MD Dr. Saxena to RN, last hemoglobin was 10.8 on 06/07/2021. hgb 11.0 today, monitor ?CKD3 Last creatinine was 1.5 on 06/07/2021 and 1.75 on 08/07/2021 Cr is 1.6 today HLD continue statin lipid panel today trig 147, total chol 127, ldl 63, hdl 37 Colon cancer status post surgery DVT prophylaxis. Heparin subcu Full code Dispo: pending cardiac clearance Admission and Anticipated Discharge Date Admission Date: August 08, 2021 Supervising Physician Co-Signing Physician Notes 66-year-old Man with history of CAD status post stent, hypertension, hyperlipidemia, PSVT, DM type II, chronic anemia, colon cancer status post mariano rgery, GERD who presented from [facility] complaining of substernal chest pain. This has been recurrent associated with palpitation occurring about 1 to 2 x/month over the past few months Patient seen and examined this morning. Had a 16 beat V. tach overnight on radiation monitor that was a symptomatic Patient has no complaints today. Physical exam only notable for some sensory deficits on the [chronic], chronic and deficit on the left earache] Lab work notable for hemoglobin of 11, creatinine of 1.6 Chest pain SVT Had one episode of nonsustained VT overnight Magnesium replaced Continue metoprolol increased to 25 mg twice daily. Server recommendations noted Agree with other plans as detailed by Sapphire De La Cruz PA-C Subjective Pt seen and evaluated in room 237-1 with guard present. 66-year-old Man with history of CAD status post stent, hypertension, hyperlipidemia, PSVT, DM type II, chronic anemia, colon cancer status post surgery, GERD who presented from [facility] complaining of substernal chest pain. Pt offers no concerns this morning. Slept well except for interruptions. Denies CP or palpitations throughout night. Denies dizziness, lightheaded, n/v/d, abdominal pain. Denies BM, but + flatus. He has been NPO this morning for possible procedure. Review of Systems Review of Systems: All systems reviewed & are unremarkable except as noted in HPI & below Physical Exam Physical Exam: Gen: WD/WN, M, NAD, A&O x3 HEENT: Normocephalic, atraumatic, conjunctivae moist, sclerae anicteric, mucous membranes moist. Lung: Clear to Auscultation bilaterally, no wheezes/rales/rhonchi Heart: Regular rate, regular rhythm, no murmurs, rubs, or gallops Abdomen: Soft, NT, ND +BS x 4 Extremities: No edema Skin: Warm, no rash, negative turgor. Results & Data Results & Data ([facility]) Vital Signs (Past 12 Hours) Vital Signs Temp Pulse Pulse Resp BP Pulse Ox Pulse Ox 08/09/21 07:18 36.6 C 59 L 17 131/78 97 08/09/21 07:00 56 L 08/09/21 04:52 96 08/09/21 03:26 36.7 C 66 18 154/87 H 98 08/09/21 01:39 77 08/08/21 22:32 36.9 C 76 18 127/78 97 Laboratory Results Short CBC 08/09/21 Range/Units 04:17 WBC 6.30 (4.8-10.8) K/uL Hgb 11.0 L (14.0-18.0) g/dL Hct 34.1 L (42-52) % Plt Count 291 (130-400) K/uL [facility] 08/09/21 04:17 Sodium 140 Potassium 4.6 Chloride 108 H Carbon Dioxide 26 BUN 20 H Creatinine 1.60 H Glucose 169 H Calcium 8.0 L Medications Administered Current Inpatient Medications Acetaminophen (Acetaminophen 325 Mg Tab) 650 mg PO Q4H PRN PRN Reason: Pain or Fever Stop: 09/07/21 04:51 Aspirin (Aspirin 81 Mg Ectab) 81 mg PO DAILY SUPA Stop: 09/07/21 08:59 Last Admin: 08/09/21 08:37 Dose: 81 mg Documented by: Atorvastatin Calcium (Atorvastatin 40 Mg Tab) 40 mg PO PM SUPA Stop: 09/07/21 20:59 Last Admin: 08/08/21 20:06 Dose: 40 mg Documented by: Dextrose (Dextrose 50% 50 Ml Syringe) 25 - 50 ml IV UD PRN; Protocol PRN Reason: Hypoglycemia Protocol Stop: 09/07/21 04:51 Ferrous Sulfate (Ferrous Sulfate 325 Mg Tab) 325 mg PO BID SUPA Stop: 09/07/21 08:59 Last Admin: 08/09/21 08:36 Dose: 325 mg Documented by: Glucagon (Glucagon For Inj 1 Mg Vial) 1 mg SQ UD PRN; Protocol PRN Reason: Hypoglycemia Protocol Stop: 09/07/21 04:51 Glucose (Glucose 10 Tabs/Tube) 4 - 8 tabs PO UD PRN; Protocol PRN Reason: Hypoglycemia Protocol Stop: 09/07/21 04:51 Glucose (Glucose 40% Gel 15 Gm Tube) 15 - 30 gm PO UD PRN; Protocol PRN Reason: Hypoglycemia Protocol Stop: 09/07/21 04:51 Heparin Sodium (Porcine) (Heparin Sod 5,000 Unit/0.5 Ml Vial) 5,000 units SQ Q8 SUPA Stop: 09/07/21 05:59 Last Admin: 08/09/21 05:14 Dose: 5,000 units Documented by: Hydromorphone HCl (Hydromorphone Inj 0.5 Mg/0.5 Ml Syr) 0.5 mg IV Q3H PRN PRN Reason: Pain Stop: 08/22/21 04:51 Promethazine HCl 12.5 mg/ (Sodium Chloride) 50.5 mls @ 202 mls/hr IV Q6H PRN PRN Reason: Nausea And Vomiting Stop: 09/07/21 04:51 Lorazepam (Ativan) 0.5 mg in 1 mls @ 1 mls/min IV Q4H PRN PRN Reason: Anxiety/Agitation Stop: 09/07/21 04:51 Insulin Aspart (Insulin Aspart 100 Units/Ml 3 Ml Pen) 0 units SC ACHS [facility] Stop: 09/07/21 07:29 Last Admin: 08/09/21 08:33 Dose: 1 units Documented by: Insulin Glargine (Insulin Glargine Solostar 100 Units/Ml 3 Ml Pen) 20 units SQ BID [facility] Stop: 09/07/21 08:59 Last Admin: 08/09/21 08:35 Dose: 20 units Documented by: Isosorbide Mononitrate (Isosorbide Tyrrell Extended Rel 60 Mg Tabcr) 60 mg PO DAILY [facility] Stop: 09/07/21 08:59 Last Admin: 08/09/21 08:35 Dose: 60 mg Documented by: Metoprolol Tartrate (Metoprolol Tartrate 25 Mg Tab) 12.5 mg PO BID [facility] Stop: 09/08/21 04:29 Last Admin: 08/09/21 04:21 Dose: 12.5 mg Documented by: Miscellaneous (Carbohydrates For Hypoglycemia ) 15 - 30 gm PO UD PRN PRN Reason: Hypoglycemia Protocol Stop: 09/07/21 04:51 Nitroglycerin (Nitroglycerin Sl 0.4 Mg/Tab Tab) 0.4 mg SL UD PRN PRN Reason: Chest Pain Stop: 09/07/21 04:51 Pantoprazole Sodium (Pantoprazole 40 Mg Tab) 40 mg PO DAILY [facility]; Protocol Stop: 09/07/21 08:59 Last Admin: 08/09/21 08:37 Dose: 40 mg Documented by: Polyethylene Glycol (Polyethylene (Miralax) 17 Gm Pack) 17 gm PO DAILY PRN PRN Reason: Constipation Stop: 09/07/21 00:53 Ranolazine (Ranolazine 500 Mg Er Tab) 500 mg PO BID [facility] Stop: 09/07/21 08:59 Last Admin: 08/09/21 08:37 Dose: 500 mg Documented by: Senna/Docusate Sodium (Docusate Sodium/Senna 50/8.6mg Tab) 1 tab PO BID SUPA Stop: 09/07/21 08:59 Last Admin: 08/09/21 08:37 Dose: Not Given Documented by: Ticagrelor (Ticagrelor 90 Mg Tab) 90 mg PO BID SUPA Stop: 09/07/21 08:59 Last Admin: 08/09/21 08:37 Dose: 90 mg Documented by: Tramadol HCl (Tramadol Hcl 50 Mg Tablet) 25 - 50 mg PO Q4H PRN PRN Reason: Pain Stop: 09/07/21 04:51 Vitamin B Complex (Vitamin B Complex Tab) 1 tab PO DAILY SUPA Stop: 09/07/21 08:59 Last Admin: 08/09/21 08:37 Dose: 1 tab Documented by: (1) Chest pain Chest pain type: precordial pain Qualified Code(s): R07.2 - Precordial pain
--- NOTE | 2021-08-09 10:52 | Cardiology Progress Note ---
Date of Service August 09, 2021 Assessment & Plan (1) Chest pain: (2) SVT (supraventricular tachycardia): (3) History of coronary artery disease: (4) History of coronary artery stent placement: (5) Aortic valve sclerosis: (6) Ventricular tachycardia: Plan: 66-year-old patient with history of coronary disease and possible supraventricular tachycardia. No recurrent chest pain or palpitations since admission. Cardiac enzymes negative He had one run of nonsustained Vt during presumed sleep last night Magnesium replaced Continue low dose metoprolol 12.5 mg BID. Resting HR's in the 50s and unable to titrate beta nasir. Patient reports he is scheduled for a loop recorder, but not verified. Called [facility] and records and future appointments have been requested. [employer] office Dr. Fernandez also contacted for records. Continue dual antiplatelet therapy and antianginal medications including beta- nasir, isosorbide monohydrate, and Ranexa. Review records and consider referral to electrophysiology to consider EPS versus implantable loop recorder. Case discussed with Dr. Pacheco . Admission and Anticipated Discharge Date Admission Date: August 08, 2021 Supervising Physician Co-Signing Physician Notes Patient seen and examined the bedside. No recurrent chest discomfort since admission. Nonsustained ventricular tachycardia recorded overnight without associated symptoms. There is a discrepancy in the medical record regarding patient's dose of beta-nasir therapy. Per Dr. Fernandez's notes, 50 mg twice daily ordered, however, patient prescribed 12.5 mg twice daily during hospitalization. There is another note from the [facility] reporting a dose of 25 mg twice daily. His resting heart rate has been in the 50s-60s throughout hospitalization. No symptomatic hypotension. PE: VSS. Gen: NAD, AAO x3. Heart: Regular rhythm, normal S1-S2. Soft, 1/6 systolic ejection murmur heard best at the base. Lungs: Clear bilateral, no rales, rhonchi, wheeze. Extremities: No edema. Agree with above PA-C history, physical exam, assessment and plan with the following additions. Presentation consistent with symptomatic tachycardia, PSVT suspected. Cardiac enzymes are negative. Echocardiogram reports ejection fraction of 50-55%. Per review of records, most recent echocardiogram reporting ejection fraction of 40-45% May 2021. Titrate metoprolol to 25 mg twice daily. Replace serum magnesium to maintain level greater than 2.0. Monitor telemetry. Await results of blood cultures x2. Records reviewed from [facility] and Dr. Fernandez. Cardiac catheterization performed in May with a chronic diagonal and OM 2 occlusion. Patent LAD and RCA stents reported. Patient referred for intervention of chronic OM occlusion at [facility] 06[facility] Andrade. 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 I also discussed the case with an software administrator at [facility], Stephon Alva who spoke on behalf of Dr. Saxena (group home bilingual medical receptionist). Patient is scheduled for follow-up with Dr. Fernandez and referral for implantation of a loop recorder. Subjective Patient resting in bed. 2 guards at bedside. Denies recurrent chest pain or SOB since admission. No recurrent palpitations or tachypalpitations. He had one non sustained run of VT overnight, during presumed sleep. He reports that he is scheduled for Loop Recorder as outpatient, but uncertain if this is scheduled. Review of Systems Review of Systems: All systems reviewed & are unremarkable except as noted in HPI & below Physical Exam Constitutional: well developed and well nourished; no acute distress Eyes: PERRL, conjunctivae normal, anicteric sclerae Respiratory: normal respiratory effort; no respiratory distress, no labored breathing and no retractions Cardiovascular: Rate/Rhythm: regular rate and regular rhythm Heart Sounds: normal S1 and normal S2; no murmur and no cardiac rub Palpation: normal PMI Vessels: radial pulses present; no JVD and no carotid bruit Extremities: no edema Gastrointestinal (Abdomen): Inspection/Auscultation: abdomen normal to inspection and normal bowel sounds; abdomen not distended Percussion/Palpation: abdomen soft; abdomen nontender, no guarding and abdomen not rigid Skin: no rashes, warm and dry Neurologic: CN's II-XI intact bilaterally and moves all extremities; no focal motor deficits Motor/Sensory: no tremor Psychiatric: A+Ox3, euthymic affect Results & Data ([facility]) Vital Signs (Past 12 Hours) Vital Signs Temp Pulse Pulse Resp BP Pulse Ox Pulse Ox 08/09/21 07:18 36.6 C 59 L 17 131/78 97 08/09/21 07:00 56 L 08/09/21 04:52 96 08/09/21 03:26 36.7 C 66 18 154/87 H 98 08/09/21 01:39 77 Laboratory Results 08/09/21 08/09/21 08/09/21 Range/Units 07:16 04:17 04:17 WBC 6.30 (4.8-10.8) K/uL RBC 4.48 L (4.7-6.1) M/uL Hgb 11.0 L (14.0-18.0) g/dL Hct 34.1 L (42-52) % MCV 76.1 L (80-100) fL MCH 24.6 L (25-34) pg MCHC 32.3 (32-36) g/dL RDW Std Deviation 43.8 (36.4-46.3) fL RDW Coeff of Berry 15.7 H (11.5-14.5) % Plt Count 291 (130-400) K/uL MPV 10.3 (7.4-10.4) fL Immature Gran % (Auto) 0.2 % Neut % (Auto) 54.0 % Lymph % (Auto) 31.4 % Wood % (Auto) 11.0 % Eos % (Auto) 2.9 % Baso % (Auto) 0.5 % Neut # (Auto) 3.41 (1.4-6.5) K/uL Lymph # (Auto) 1.98 (1.2-3.4) K/uL Wood # (Auto) 0.69 H (0.11-0.59) K/uL Eos # (Auto) 0.18 (0-0.5) K/uL Baso # (Auto) 0.03 (0-0.2) K/uL Immature Gran # (Auto) 0.01 (0.00-0.02) K/uL Sodium 140 (136-145) mmol/L Potassium 4.6 (3.5-5.1) mmol/L Chloride 108 H (98-107) mmol/L Carbon Dioxide 26 (21-32) mmol/L Anion Gap 6.0 (3-11) BUN 20 H (7-18) mg/dl Creatinine 1.60 H (0.6-1.4) mg/dl Est Cr Clr Drug Dosing Not Reportable Est GFR ( Amer) 50.9 ml/min Est GFR (Non-Af Amer) 43.9 ml/min BUN/Creatinine Ratio 12.6 (10-20) Glucose 169 H (70-99) mg/dl POC Glucose 159 H (70-99) mg/dl Estimat Average Glucose mg/dl Hemoglobin A1c (4.5-5.6) % Calcium 8.0 L (8.5-10.1) mg/dl Magnesium 1.8 (1.8-2.4) mg/dl Triglycerides 137 (0-150) mg/dl Cholesterol 127 (0-200) mg/dl LDL Cholesterol, Calc 63 mg/dl VLDL Cholesterol, Calc 27 mg/dl HDL Cholesterol 37 mg/dl Cholesterol/HDL Ratio 3 TSH (0.300-4.500) uIu/ml 08/08/21 08/08/21 08/08/21 Range/Units 20:36 20:00 16:26 WBC (4.8-10.8) K/uL RBC (4.7-6.1) M/uL Hgb (14.0-18.0) g/dL Hct (42-52) % MCV (80-100) fL MCH (25-34) pg MCHC (32-36) g/dL RDW Std Deviation (36.4-46.3) fL RDW Coeff of Berry (11.5-14.5) % Plt Count (130-400) K/uL MPV (7.4-10.4) fL Immature Gran % (Auto) % Neut % (Auto) % Lymph % (Auto) % Wood % (Auto) % Eos % (Auto) % Baso % (Auto) % Neut # (Auto) (1.4-6.5) K/uL Lymph # (Auto) (1.2-3.4) K/uL Wood # (Auto) (0.11-0.59) K/uL Eos # (Auto) (0-0.5) K/uL Baso # (Auto) (0-0.2) K/uL Immature Gran # (Auto) (0.00-0.02) K/uL Sodium (136-145) mmol/L Potassium (3.5-5.1) mmol/L Chloride (98-107) mmol/L Carbon Dioxide (21-32) mmol/L Anion Gap (3-11) BUN (7-18) mg/dl Creatinine (0.6-1.4) mg/dl Est Cr Clr Drug Dosing Est GFR ( Amer) ml/min Est GFR (Non-Af Amer) ml/min BUN/Creatinine Ratio (10-20) Glucose (70-99) mg/dl POC Glucose 168 H 129 H 242 H (70-99) mg/dl Estimat Average Glucose mg/dl Hemoglobin A1c (4.5-5.6) % Calcium (8.5-10.1) mg/dl Magnesium (1.8-2.4) mg/dl Triglycerides (0-150) mg/dl Cholesterol (0-200) mg/dl LDL Cholesterol, Calc mg/dl VLDL Cholesterol, Calc mg/dl HDL Cholesterol mg/dl Cholesterol/HDL Ratio TSH (0.300-4.500) uIu/ml 08/08/21 08/07/21 08/07/21 Range/Units 12:21 19:52 19:52 WBC (4.8-10.8) K/uL RBC (4.7-6.1) M/uL Hgb (14.0-18.0) g/dL Hct (42-52) % MCV (80-100) fL MCH (25-34) pg MCHC (32-36) g/dL RDW Std Deviation (36.4-46.3) fL RDW Coeff of Berry (11.5-14.5) % Plt Count (130-400) K/uL MPV (7.4-10.4) fL Immature Gran % (Auto) % Neut % (Auto) % Lymph % (Auto) % Wood % (Auto) % Eos % (Auto) % Baso % (Auto) % Neut # (Auto) (1.4-6.5) K/uL Lymph # (Auto) (1.2-3.4) K/uL Wood # (Auto) (0.11-0.59) K/uL Eos # (Auto) (0-0.5) K/uL Baso # (Auto) (0-0.2) K/uL Immature Gran # (Auto) (0.00-0.02) K/uL Sodium (136-145) mmol/L Potassium (3.5-5.1) mmol/L Chloride (98-107) mmol/L Carbon Dioxide (21-32) mmol/L Anion Gap (3-11) BUN (7-18) mg/dl Creatinine (0.6-1.4) mg/dl Est Cr Clr Drug Dosing Est GFR ( Amer) ml/min Est GFR (Non-Af Amer) ml/min BUN/Creatinine Ratio (10-20) Glucose (70-99) mg/dl POC Glucose 239 H (70-99) mg/dl Estimat Average Glucose 163 mg/dl Hemoglobin A1c 7.3 H (4.5-5.6) % Calcium (8.5-10.1) mg/dl Magnesium 2.1 (1.8-2.4) mg/dl Triglycerides (0-150) mg/dl Cholesterol (0-200) mg/dl LDL Cholesterol, Calc mg/dl VLDL Cholesterol, Calc mg/dl HDL Cholesterol mg/dl Cholesterol/HDL Ratio TSH 0.425 (0.300-4.500) uIu/ml Diagnostic Findings Telemetry reviewed - NSR with one run of non sustained VT around 4 AM Echo report reviewed - preserved LV systolic function without wall motion abnormalities. Medications Administered Current Inpatient Medications Acetaminophen (Acetaminophen 325 Mg Tab) 650 mg PO Q4H PRN PRN Reason: Pain or Fever Stop: 09/07/21 04:51 Aspirin (Aspirin 81 Mg Ectab) 81 mg PO DAILY SUPA Stop: 09/07/21 08:59 Last Admin: 08/09/21 08:37 Dose: 81 mg Documented by: Atorvastatin Calcium (Atorvastatin 40 Mg Tab) 40 mg PO PM SUPA Stop: 09/07/21 20:59 Last Admin: 08/08/21 20:06 Dose: 40 mg Documented by: Dextrose (Dextrose 50% 50 Ml Syringe) 25 - 50 ml IV UD PRN; Protocol PRN Reason: Hypoglycemia Protocol Stop: 09/07/21 04:51 Ferrous Sulfate (Ferrous Sulfate 325 Mg Tab) 325 mg PO BID SUPA Stop: 09/07/21 08:59 Last Admin: 08/09/21 08:36 Dose: 325 mg Documented by: Glucagon (Glucagon For Inj 1 Mg Vial) 1 mg SQ UD PRN; Protocol PRN Reason: Hypoglycemia Protocol Stop: 09/07/21 04:51 Glucose (Glucose 10 Tabs/Tube) 4 - 8 tabs PO UD PRN; Protocol PRN Reason: Hypoglycemia Protocol Stop: 09/07/21 04:51 Glucose (Glucose 40% Gel 15 Gm Tube) 15 - 30 gm PO UD PRN; Protocol PRN Reason: Hypoglycemia Protocol Stop: 09/07/21 04:51 Heparin Sodium (Porcine) (Heparin Sod 5,000 Unit/0.5 Ml Vial) 5,000 units SQ Q8 SUPA Stop: 09/07/21 05:59 Last Admin: 08/09/21 05:14 Dose: 5,000 units Documented by: Hydromorphone HCl (Hydromorphone Inj 0.5 Mg/0.5 Ml Syr) 0.5 mg IV Q3H PRN PRN Reason: Pain Stop: 08/22/21 04:51 Promethazine HCl 12.5 mg/ (Sodium Chloride) 50.5 mls @ 202 mls/hr IV Q6H PRN PRN Reason: Nausea And Vomiting Stop: 09/07/21 04:51 Lorazepam (Ativan) 0.5 mg in 1 mls @ 1 mls/min IV Q4H PRN PRN Reason: Anxiety/Agitation Stop: 09/07/21 04:51 Insulin Aspart (Insulin Aspart 100 Units/Ml 3 Ml Pen) 0 units SC ACHS SUPA Stop: 09/07/21 07:29 Last Admin: 08/09/21 08:33 Dose: 1 units Documented by: Insulin Glargine (Insulin Glargine Solostar 100 Units/Ml 3 Ml Pen) 20 units SQ BID SUPA Stop: 09/07/21 08:59 Last Admin: 08/09/21 08:35 Dose: 20 units Documented by: Isosorbide Mononitrate (Isosorbide [place] Extended Rel 60 Mg Tabcr) 60 mg PO DAILY SUPA Stop: 09/07/21 08:59 Last Admin: 08/09/21 08:35 Dose: 60 mg Documented by: Metoprolol Tartrate (Metoprolol Tartrate 25 Mg Tab) 12.5 mg PO BID SUPA Stop: 09/08/21 04:29 Last Admin: 08/09/21 04:21 Dose: 12.5 mg Documented by: Miscellaneous (Carbohydrates For Hypoglycemia ) 15 - 30 gm PO UD PRN PRN Reason: Hypoglycemia Protocol Stop: 09/07/21 04:51 Nitroglycerin (Nitroglycerin Sl 0.4 Mg/Tab Tab) 0.4 mg SL UD PRN PRN Reason: Chest Pain Stop: 09/07/21 04:51 Pantoprazole Sodium (Pantoprazole 40 Mg Tab) 40 mg PO DAILY SUPA; Protocol Stop: 09/07/21 08:59 Last Admin: 08/09/21 08:37 Dose: 40 mg Documented by: Polyethylene Glycol (Polyethylene (Miralax) 17 Gm Pack) 17 gm PO DAILY PRN PRN Reason: Constipation Stop: 09/07/21 00:53 Ranolazine (Ranolazine 500 Mg Er Tab) 500 mg PO BID SUPA Stop: 09/07/21 08:59 Last Admin: 08/09/21 08:37 Dose: 500 mg Documented by: Senna/Docusate Sodium (Docusate Sodium/Senna 50/8.6mg Tab) 1 tab PO BID SUPA Stop: 09/07/21 08:59 Last Admin: 08/09/21 08:37 Dose: Not Given Documented by: Ticagrelor (Ticagrelor 90 Mg Tab) 90 mg PO BID SUPA Stop: 09/07/21 08:59 Last Admin: 08/09/21 08:37 Dose: 90 mg Documented by: Tramadol HCl (Tramadol Hcl 50 Mg Tablet) 25 - 50 mg PO Q4H PRN PRN Reason: Pain Stop: 09/07/21 04:51 Vitamin B Complex (Vitamin B Complex Tab) 1 tab PO DAILY SUPA Stop: 09/07/21 08:59 Last Admin: 08/09/21 08:37 Dose: 1 tab Documented by: (1) Chest pain Chest pain type: precordial pain Qualified Code(s): R07.2 - Precordial pain
[2021-08-09] MEDS ORDERED: METOPROLOL TARTRATE 25 MG TAB PO ONE (11:34)
[2021-08-09] MEDS: ATORVASTATIN 40 MG TAB PO SCH (21:04)
[2021-08-09] MEDS: METOPROLOL TARTRATE 25 MG TAB PO SCH (21:04)
[2021-08-10] MEDS: HEPARIN SOD 5,000 UNIT/0.5 ML VIAL SQ SCH ×2 (06:35→13:10)
[2021-08-10 07:30] LABS: BUN Creatinine Ratio 12.5 (10-20); Blood Urea Nitrogen 21 mg/dl (7-18); Carbon Dioxide 25 mmol/L (21-32); Chloride 108 mmol/L (98-107); Est GFR (African American) 48.3 ml/min; Est GFR (Non-African American) 41.7 ml/min; Glucose 116 mg/dl (70-99); Potassium 4.4 mmol/L (3.5-5.1); Sodium 140 mmol/L (136-145)
[2021-08-10] MEDS: FERROUS SULFATE 325 MG TAB PO SCH (09:02)
[2021-08-10] MEDS: METOPROLOL TARTRATE 25 MG TAB PO SCH (09:02)
[2021-08-10] MEDS: ISOSORBIDE MONO EXTENDED REL 60 MG TABCR PO SCH (09:02)
[2021-08-10] MEDS: PANTOprazole 40 MG TAB PO SCH (09:02)
[2021-08-10] MEDS: RANOLAZINE 500 MG ER TAB PO SCH (09:02)
[2021-08-10] MEDS: TICAGRELOR 90 MG TAB PO SCH (09:02)
[2021-08-10] MEDS: ASPIRIN 81 MG ECTAB PO SCH (09:02)
[2021-08-10] MEDS: VITAMIN B COMPLEX TAB PO SCH (09:03)
[2021-08-10] MEDS: DOCUSATE SODIUM/SENNA 50/8.6MG TAB PO SCH (09:04)
[2021-08-10] MEDS: INSULIN ASPART 100 UNITS/ML 3 ML PEN SC SCH ×2 (09:07→12:42)
[2021-08-10] MEDS: INSULIN GLARGINE SOLOSTAR 100 UNITS/ML 3 ML PEN SQ SCH (09:07)
--- NOTE | 2021-08-10 09:52 | Cardiology Progress Note ---
Date of Service August 10, 2021 Assessment & Plan (1) Chest pain: (2) SVT (supraventricular tachycardia): (3) History of coronary artery disease: (4) History of coronary artery stent placement: (5) Aortic valve sclerosis: (6) Ventricular tachycardia: Plan: 66-year-old patient with history of coronary disease and possible supraventricular tachycardia. He had one run of nonsustained Vt during presumed sleep last night on 08/09. Metoprolol increased to 25 mg BID Magnesium replaced No recurrent arrhythmias overnight. blood cultures are negative (prelim report). Likely aortic calcification, not vegetation, on echo. Confirmed with [facility] that patient is set to f/u with Dr. Fernandez and future loop recorder to be done. Continue dual antiplatelet therapy and antianginal medications including beta- nasir, isosorbide monohydrate, and Ranexa on discharge. Stable cardiac symptoms for discharge today. Case discussed with Dr. Pacheco . Admission and Anticipated Discharge Date Admission Date: August 09, 2021 Supervising Physician Co-Signing Physician Notes Patient seen and examined the bedside. No recurrent chest discomfort since admission. No recurrent ventricular tachycardia on telemetry. Feeling well from a cardiovascular perspective today. Offers no concerns/complaints PE: VSS. Gen: NAD, AAO x3. Heart: Regular rhythm, normal S1-S2. Soft, 1/6 systolic ejection murmur heard best at the base. Lungs: Clear bilateral, no rales, rhonchi, wheeze. Extremities: No edema. Agree with above PA-C history, physical exam, assessment and plan with the following additions. Presentation consistent with symptomatic tachycardia, PSVT suspected. Continue beta-nasir in addition to other cardiovascular medications as previously ordered. Patient will follow up for loop recorder implantation as scheduled. Subjective Patient feeling well this morning. No palpitations or tachypalpitations reported. No recurrent VT on telemetry over the last 24 hours. No chest pain or SOB. No fevers or chills. Voices no concerns Review of Systems Review of Systems: All systems reviewed & are unremarkable except as noted in HPI & below Physical Exam Constitutional: well developed and well nourished; no acute distress Eyes: PERRL, conjunctivae normal, anicteric sclerae Respiratory: normal respiratory effort; no respiratory distress, no labored breathing and no retractions Cardiovascular: Rate/Rhythm: regular rate and regular rhythm Heart Sounds: normal S1 and normal S2; no murmur and no cardiac rub Palpation: normal PMI Vessels: radial pulses present; no JVD and no carotid bruit Extremities: no edema Gastrointestinal (Abdomen): Inspection/Auscultation: abdomen normal to inspection and normal bowel sounds; abdomen not distended Percussion/Palpation: abdomen soft; abdomen nontender, no guarding and abdomen not rigid Skin: no rashes, warm and dry Neurologic: CN's II-XI intact bilaterally and moves all extremities; no focal motor deficits Motor/Sensory: no tremor Psychiatric: A+Ox3, euthymic affect Results & Data ([facility]) Vital Signs (Past 12 Hours) Vital Signs Temp Pulse Pulse Resp BP BP Pulse Ox 08/10/21 08:00 36.7 C 75 16 144/85 H 98 08/10/21 04:07 36.6 C 59 L 18 132/78 96 08/10/21 04:00 08/10/21 01:12 75 08/09/21 23:42 37 C 70 14 133/74 98 Pulse Ox 08/10/21 08:00 08/10/21 04:07 08/10/21 04:00 96 08/10/21 01:12 08/09/21 23:42 Laboratory Results 08/10/21 08/10/21 08/09/21 Range/Units 07:14 06:27 20:26 Sodium 140 (136-145) mmol/L Potassium 4.4 (3.5-5.1) mmol/L Chloride 108 H (98-107) mmol/L Carbon Dioxide 25 (21-32) mmol/L Anion Gap 7.0 (3-11) BUN 21 H (7-18) mg/dl Creatinine 1.67 H (0.6-1.4) mg/dl Est Cr Clr Drug Dosing Not Reportable Est GFR ( Amer) 48.3 ml/min Est GFR (Non-Af Amer) 41.7 ml/min BUN/Creatinine Ratio 12.5 (10-20) Glucose 116 H (70-99) mg/dl POC Glucose 112 H 238 H (70-99) mg/dl Calcium 9.0 (8.5-10.1) mg/dl Magnesium 2.0 (1.8-2.4) mg/dl Hepatitis C Ab Screen (Neg) 08/09/21 08/09/21 08/08/21 Range/Units 16:16 11:22 07:23 Sodium (136-145) mmol/L Potassium (3.5-5.1) mmol/L Chloride (98-107) mmol/L Carbon Dioxide (21-32) mmol/L Anion Gap (3-11) BUN (7-18) mg/dl Creatinine (0.6-1.4) mg/dl Est Cr Clr Drug Dosing Est GFR ( Amer) ml/min Est GFR (Non-Af Amer) ml/min BUN/Creatinine Ratio (10-20) Glucose (70-99) mg/dl POC Glucose 202 H 147 H (70-99) mg/dl Calcium (8.5-10.1) mg/dl Magnesium (1.8-2.4) mg/dl Hepatitis C Ab Screen Neg (Neg) Diagnostic Findings Telemetry reviewed - NSR, no recurrent VT in the last 24 hours. No bradycardia with titration of beta nasir Medications Administered Current Inpatient Medications Acetaminophen (Acetaminophen 325 Mg Tab) 650 mg PO Q4H PRN PRN Reason: Pain or Fever Stop: 09/07/21 04:51 Aspirin (Aspirin 81 Mg Ectab) 81 mg PO DAILY SUPA Stop: 09/07/21 08:59 Last Admin: 08/10/21 09:02 Dose: 81 mg Documented by: Atorvastatin Calcium (Atorvastatin 40 Mg Tab) 40 mg PO PM SUPA Stop: 09/07/21 20:59 Last Admin: 08/09/21 21:04 Dose: 40 mg Documented by: Dextrose (Dextrose 50% 50 Ml Syringe) 25 - 50 ml IV UD PRN; Protocol PRN Reason: Hypoglycemia Protocol Stop: 09/07/21 04:51 Ferrous Sulfate (Ferrous Sulfate 325 Mg Tab) 325 mg PO BID SUPA Stop: 09/07/21 08:59 Last Admin: 08/10/21 09:02 Dose: 325 mg Documented by: Glucagon (Glucagon For Inj 1 Mg Vial) 1 mg SQ UD PRN; Protocol PRN Reason: Hypoglycemia Protocol Stop: 09/07/21 04:51 Glucose (Glucose 10 Tabs/Tube) 4 - 8 tabs PO UD PRN; Protocol PRN Reason: Hypoglycemia Protocol Stop: 09/07/21 04:51 Glucose (Glucose 40% Gel 15 Gm Tube) 15 - 30 gm PO UD PRN; Protocol PRN Reason: Hypoglycemia Protocol Stop: 09/07/21 04:51 Heparin Sodium (Porcine) (Heparin Sod 5,000 Unit/0.5 Ml Vial) 5,000 units SQ Q8 SUPA Stop: 09/07/21 05:59 Last Admin: 08/10/21 06:35 Dose: 5,000 units Documented by: Hydromorphone HCl (Hydromorphone Inj 0.5 Mg/0.5 Ml Syr) 0.5 mg IV Q3H PRN PRN Reason: Pain Stop: 08/22/21 04:51 Promethazine HCl 12.5 mg/ (Sodium Chloride) 50.5 mls @ 202 mls/hr IV Q6H PRN PRN Reason: Nausea And Vomiting Stop: 09/07/21 04:51 Lorazepam (Ativan) 0.5 mg in 1 mls @ 1 mls/min IV Q4H PRN PRN Reason: Anxiety/Agitation Stop: 09/07/21 04:51 Insulin Aspart (Insulin Aspart 100 Units/Ml 3 Ml Pen) 0 units SC ACHS SUPA Stop: 09/07/21 07:29 Last Admin: 08/10/21 09:07 Dose: 11 units Documented by: Insulin Glargine (Insulin Glargine Solostar 100 Units/Ml 3 Ml Pen) 20 units SQ BID [facility] Stop: 09/07/21 08:59 Last Admin: 08/10/21 09:07 Dose: 20 units Documented by: Isosorbide Mononitrate (Isosorbide [place] Extended Rel 60 Mg Tabcr) 60 mg PO DAILY SUPA Stop: 09/07/21 08:59 Last Admin: 08/10/21 09:02 Dose: 60 mg Documented by: Metoprolol Tartrate (Metoprolol Tartrate 25 Mg Tab) 25 mg PO BID SUPA Stop: 09/08/21 20:59 Last Admin: 08/10/21 09:02 Dose: 25 mg Documented by: Miscellaneous (Carbohydrates For Hypoglycemia ) 15 - 30 gm PO UD PRN PRN Reason: Hypoglycemia Protocol Stop: 09/07/21 04:51 Nitroglycerin (Nitroglycerin Sl 0.4 Mg/Tab Tab) 0.4 mg SL UD PRN PRN Reason: Chest Pain Stop: 09/07/21 04:51 Pantoprazole Sodium (Pantoprazole 40 Mg Tab) 40 mg PO DAILY SUPA; Protocol Stop: 09/07/21 08:59 Last Admin: 08/10/21 09:02 Dose: 40 mg Documented by: Polyethylene Glycol (Polyethylene (Miralax) 17 Gm Pack) 17 gm PO DAILY PRN PRN Reason: Constipation Stop: 09/07/21 00:53 Ranolazine (Ranolazine 500 Mg Er Tab) 500 mg PO BID [facility] Stop: 09/07/21 08:59 Last Admin: 08/10/21 09:02 Dose: 500 mg Documented by: Senna/Docusate Sodium (Docusate Sodium/Senna 50/8.6mg Tab) 1 tab PO BID [facility] Stop: 09/07/21 08:59 Last Admin: 08/10/21 09:04 Dose: Not Given Documented by: Ticagrelor (Ticagrelor 90 Mg Tab) 90 mg PO BID [facility] Stop: 09/07/21 08:59 Last Admin: 08/10/21 09:02 Dose: 90 mg Documented by: Tramadol HCl (Tramadol Hcl 50 Mg Tablet) 25 - 50 mg PO Q4H PRN PRN Reason: Pain Stop: 09/07/21 04:51 Vitamin B Complex (Vitamin B Complex Tab) 1 tab PO DAILY [facility] Stop: 09/07/21 08:59 Last Admin: 08/10/21 09:03 Dose: 1 tab Documented by: (1) Chest pain Chest pain type: precordial pain Qualified Code(s): R07.2 - Precordial pain
--- NOTE | 2021-08-10 10:52 | Hospitalist Progress Note ---
Date of Service August 10, 2021 Assessment & Plan (1) Chest pain: Plan: 66-year-old Man with history of CAD status post stent, hypertension, hyperlipidemia, PSVT, DM type II, chronic anemia, colon cancer status post surgery, GERD who presented from [facility] complaining of substernal chest pain. ACS vs tachyarrhythmia (PSVT) History of CAD status post stent Patient reports his primary assembler tractor was talking about the loop recorder placement. Troponins are negative. EKG showed TWI in 1 and aVL. We will follow-up cardiology recommendations. Awaiting records from assembler tractor as well as [facility] where patient reported he got stent No recurrence event of V. tach overnight on telemetry. He has maintained normal sinus rhythm. He did have episode of 16 run of V. tach that was asymptomatic on 08/09 Metoprolol increased to 25 mg twice daily Blood cultures are negative - discussed with micro @ 10:45 and still negative K is 4.4, mag 2.0 - received mag sulfate - keep above 4 and 2.0 respectively Continue home aspirin and Brilinta Continue atorvastatin, metoprolol titrate, imdur and ranexa Cardiology did confirm with long term that patient is set up with Dr. Fernandez & future loop recorder is to be placed echo EF 50-55%, mild LVH, moderate sclerosis of left coronary aortic valve cusp, ? small mobile echodensity of L coronary av cusp - felt unlikely to be endocarditis and most likely aortic calcification given negative blood culture thus far Hypertension Controlled Continue medications DM type II Insulin per protocol a1c 7.3 on 08/07/21 Anemia, ?chronic Per message relayed by long term MD Dr. Saxena to RN, last hemoglobin was 10.8 on 06/07/2021. hgb 11.0 today, monitor ?CKD3 Last creatinine was 1.5 on 06/07/2021 and 1.75 on 08/07/2021 Cr is 1.6 today HLD continue statin lipid panel today trig 147, total chol 127, ldl 63, hdl 37 Colon cancer status post surgery DVT prophylaxis. Heparin subcu Full code Dispo: discharge today Admission and Anticipated Discharge Date Admission Date: August 09, 2021 Supervising Physician Co-Signing Physician Notes 66-year-old Man with history of CAD status post stent, hypertension, hyperlipidemia, PSVT, DM type II, chronic anemia, colon cancer status post surgery, [facility]D [facility] sub[facility]ernal chest pain. This has been recurrent associated with palpitation occurring about 1 to 2 x/month over the past few months Patient seen and examined this morning. No events on tele overnight Patient has no complaints today. Physical exam only notable for some sensory deficits on the [chronic], chronic and deficit on the left earache] Lab work notable for creatinine of 1.67 Chest pain SVT Continue metoprolol increased to 25 mg twice daily. Cattle Dealer recommendations noted Patient will follow his outpatient assembler tractor for planned procedure Agree with other plans as detailed by Sapphire De La Cruz PA-C Subjective Pt seen and evaluated in room 237-1 with guard present. 66-year-old Man with history of CAD status post stent, hypertension, hyperlipidemia, PSVT, DM type II, chronic anemia, colon cancer status post surgery, GERD who presented from [facility] complaining of substernal chest pain. Patient slept well last evening and offers no acute concerns. He denies any recurrence of chest pain or palpitations. His appetite is normal. He denies shortness of breath, cough, nausea, vomiting or abdominal pain. Moving bowels and urinating normally. prison guard supervisor is at bedside. Review of Systems Review of Systems: All systems reviewed & are unremarkable except as noted in HPI & below Physical Exam Physical Exam: Gen: WD/WN, M, NAD, A&O x3 HEENT: Normocephalic, atraumatic, conjunctivae moist, sclerae anicteric, mucous membranes moist. Lung: Clear to Auscultation bilaterally, no wheezes/rales/rhonchi Heart: Regular rate, regular rhythm, no murmurs, rubs, or gallops Abdomen: Soft, NT, ND +BS x 4 Extremities: No edema Skin: Warm, no rash, negative turgor. Results & Data Results & Data ([facility]) Vital Signs (Past 12 Hours) Vital Signs Temp Pulse Pulse Resp BP BP Pulse Ox 08/10/21 08:00 36.7 C 75 16 144/85 H 98 08/10/21 04:07 36.6 C 59 L 18 132/78 96 08/10/21 04:00 08/10/21 01:12 75 08/09/21 23:42 37 C 70 14 133/74 98 Pulse Ox 08/10/21 08:00 08/10/21 04:07 08/10/21 04:00 96 08/10/21 01:12 08/09/21 23:42 Laboratory Results [facility] 08/10/21 06:27 Sodium 140 Potassium 4.4 Chloride 108 H Carbon Dioxide 25 BUN 21 H Creatinine 1.67 H Glucose 116 H Calcium 9.0 (1) Chest pain Chest pain type: precordial pain Qualified Code(s): R07.2 - Precordial pain
--- NOTE | 2021-08-10 11:20 | Discharge Summary ---
Date of Service August 10, 2021 Admission HPI Per Admitting Provider History obtained from patient and records. Medical history significant for CAD status post stent, hypertension, hyperlipidemia, PSVT, DM2 insulin requiring, chronic anemia (unknown baseline), colon cancer status post surgery, GERD. Patient was reading a book in [place] today when he noted substernal pain described as pressure like causing him to belch accompanied by diaphoresis and sweatiness. No cough, no shortness of breath. Symptoms are reminiscent of heart attack episode. Last episode was a few weeks ago. Patient's tool repairer from [place] contemplating putting a "heart monitor on him" for fast heartbeat. Narrow complex tachycardia on EKG done at the [facility] as per documentation. Chest pain relieved by aspirin and nitroglycerin administered at the present. Patient currently comfortable. Medical History as above Surgical History : Bowel surgery Family History : DM Personal/Social history : Non-smoker, no EtOH intake, prior work as a [employer] Admission Exam Per Admitting Provider Physical Exam: GENERAL: Comfortable, obese, pleasant, no respiratory distress SKIN: Pallor, warm HEENT: Pale palpebral conjunctivae, no ptosis, moist buccal mucosa NECK : Supple, short neck, no tenderness CHEST : CTA, no tenderness HEART : RRR, no obvious murmurs ABDOMEN: Some distention, nontender EXTREMITIES : Minimal LE swelling, no LE tenderness, no other conspicuous deformities noted NEUROLOGIC : Coherent, no facial asymmetry, no other gross focality Principal Diagnosis Chest Pain Nonsustained VTACH T2DM CAD Aortic Valve Sclerosis Discharge Exam Gen: WD/WN, M, NAD, A&O x3 HEENT: Normocephalic, atraumatic, conjunctivae moist, sclerae anicteric, mucous membranes moist. Lung: Clear to Auscultation bilaterally, no wheezes/rales/rhonchi Heart: Regular rate, regular rhythm, no murmurs, rubs, or gallops Abdomen: Soft, NT, ND +BS x 4 Extremities: No edema Skin: Warm, no rash, negative turgor. Discharge Data Allergies Allergy/AdvReac Type Severity Reaction Status Date / Time sulfamethoxazole Allergy Unknown Unverified 08/07/21 19:33 [From Bactrim] trimethoprim [From Bactrim] Allergy Unknown Unverified 08/07/21 19:33 Consultations Cardiology: Assessment & Plan (1) Chest pain: (2) SVT (supraventricular tachycardia): (3) History of coronary artery disease: (4) History of coronary artery stent placement: (5) Aortic valve sclerosis: (6) Ventricular tachycardia: Plan: 66-year-old patient with history of coronary disease and possible supraventricular tachycardia. He had one run of nonsustained Vt during presumed sleep last night on 08/09. Metoprolol increased to 25 mg BID Magnesium replaced No recurrent arrhythmias overnight. blood cultures are negative (prelim report). Likely aortic calcification, not vegetation, on echo. Confirmed with [facility] that patient is set to f/u with Dr. Fernandez and future loop recorder to be done. Continue dual antiplatelet therapy and antianginal medications including beta- nasir, isosorbide monohydrate, and Ranexa on discharge. Stable cardiac symptoms for discharge today. Case discussed with Dr. Pacheco . Ordered Studies Chest X-Ray 08/07/21 19:30 XR chest 1V portable INDICATION: MN ^Y ^Chest Pain . TECHNIQUE: Single frontal radiograph of the chest was obtained. Comparison: None available at the time of this dictation. FINDINGS: No lines and tubes are seen. The cardiomediastinal silhouette is normal. The lungs are clear. No evidence of pleural effusion or pneumothorax. IMPRESSION: No acute chest disease. ACT 112: Negative or not required by law. Electronically signed by: Blu Jurado M.D. 08/07/2021 7:46 PM Echocardiogram 08/08/21: echo EF 50-55%, mild LVH, moderate sclerosis of left coronary aortic valve cusp, ? small mobile echodensity of L coronary av cusp - felt unlikely to be endocarditis and most likely aortic calcification given negative blood culture thus far Short CBC 08/07/21 08/08/21 08/09/21 Range/Units 19:52 07:23 04:17 Creatinine 1.75 H 1.53 H 1.60 H (0.6-1.4) mg/dl 08/10/21 Range/Units 06:27 Creatinine 1.67 H (0.6-1.4) mg/dl BMP 08/10/21 06:27 Sodium 140 Potassium 4.4 Chloride 108 H Carbon Dioxide 25 BUN 21 H Creatinine 1.67 H Glucose 116 H Calcium 9.0 BLOOD CULTURES: Negative x 2 for 48hrs Hospital Course (1) Chest pain: 66-year-old inmate at [facility] with history of CAD status post stent, hypertension, hyperlipidemia, PSVT, DM type II, chronic anemia, colon cancer status post surgery, GERD who presented from [facility] complaining of substernal chest pain and concern for narrow complex tachycardia prior to arrival. He was admitted for 2 midnights without recurrence of chest pain. He underwent cardiac work up and ACS was ruled out. He was monitored on telemetry which revealed a 16 beat run of NSVT that occurred overnight and patient was asymptomatic. His magnesium was 1.8 and he receive 1g magnesium sulfate to keep mag great than 2.0. Cardiology recommended increasing his metoprolol tartrate to 25mg twice daily. Echocardiogram was performed which revealed EF 50-55%, mild LVH, moderate sclerosis of left coronary aortic valve cusp, ? small mobile echodensity of L coronary av cusp. This was felt unlikely to be endocarditis and most likely aortic calcification given negative blood cultures for 48 hours. Pt follows with outpatient tool repairer Dr. Fernandez and plan is already in place to undergo loop recorder. I spoke with [employer]olt [employer] of [facility] and gave sign out. He confirms arrangements will be made for patient to follow up appropriately with cardiology. At time of discharge patient was chest pain free and blood pressure was 155/80. His blood pressure was labile throughout hospital stay ranging systolically from 120s-170s. He was otherwise hemodynamically stable, tolerating diet and voiced no concerns. His creatinine at discharge was stable at 1.67. He is to resume all other home medications. Total Time Total Time Spent Total Time Spent (In Minutes): 45 minutes Total Time Includes: Examination of the Patient, Discharge Planning, Medication Reconciliation, Communication With Other Providers and Other Discharge Plan Discharge Items [facility]position[facility] Reason For Visit: CP, PSVT Discharge Diagnosis: Chest Pain Nonsustained Vtach Activity: As commented below Activity Comment: Avoid activity until cleared by your tool repairer Lifting: None Bathing: No limitations Exercise/Sports: None and Wait until after follow-up appointment Exercise Comment: Exercise is not recommended until cleared by cardiology Weightbearing: Full weightbearing Non-emergency contact: Primary Care Provider Call non-emergency contact if: you have any medication questions, your symptoms worsen, your pain is not controlled and you have a fever Follow-up/Referrals: [facility] [Primary Care Provider] - Diet: Carb Consistent or DM2 Addtl Attending Provider Instructions: MEDICATION CHANGES: Metoprolol Tartrate increased to 25mg by mouth twice daily Continue all other medications as prescribed SUMMARY OF TEST RESULTS/HOSPITALIZATION: You were admitted to hospital due to chest pain and concern for heart arrhythmia. You were monitored on heart monitor which revealed normal sinus rhythm, except for one occurrence of a arrhythmia called ventricular tachycardia. You had serial blood work and an echocardiogram which confirmed your chest pain was not related to a heart attack. There is concern regarding underlying arrhythmia and it is important you follow up with your cardiology. Plan is for your tool repairer to place a loop recorder to long term care pharmacist heart rhythm monitoring. Cardiology increased your metoprolol tartrate to 25mg twice daily. Continue all other medications as prescribed. PENDING TEST RESULTS: None RECOMMENDATIONS FOR FOLLOW-UP: Keep follow up appointments with Fertilizer Processing Supervisor, Dr. Davenport, for loop recorder placement. Recommend abstaining from physical activity until you are cleared by your tool repairer. Monitor blood pressure daily. Goal blood pressure for you is < 130/80. OTHER INSTRUCTIONS: Seek medical attention if you have: * temperature above 101 * chest pain or trouble breathing * abdominal pain, nausea, vomiting * diarrhea, dark stools or bloody stools * any unanswered questions or concerns Call 911 if symptoms are severe. Please take good care of yourself. It has been a pleasure taking care of you. Please take care of yourself. If you have any questions regarding your recent hospitalization please contact [facility] and request José Antonio Letaist @ [phone]. Pending Studies at Discharge: No Stand-Alone Forms: My [facility] Skilled Items Patient informed of condition?: Yes Discharge Level of Care: Other Communicable Disease: No Discharge Prognosis: Stable Lines: None Urinary Catheter: No Medications and DC Order Prescriptions: New metoprolol tartrate 25 mg Tablet 25 mg PO BID Qty: 60 RF: 0 Continued atorvastatin 40 mg Tablet 40 mg PO PM RF: 0 lisinopril 20 mg Tablet 20 mg PO DAILY RF: 0 omeprazole 40 mg Capsule,Delayed Release(Dr/Ec) 40 mg PO DAILY RF: 0 aspirin [Aspirin Low Dose] 81 mg Tablet,Delayed Release (Dr/Ec) 81 mg PO DAILY RF: 0 isosorbide mononitrate 60 mg Tablet Extended Release 24 Hr 60 mg PO DAILY RF: 0 ferrous sulfate 325 mg (65 mg iron) Tablet 325 mg PO BID RF: 0 metformin 1,000 mg Tablet 1,000 mg PO BID RF: 0 calcium polycarbophil [Fiber-Lax] 625 mg Tablet 1,250 mg PO BID RF: 0 nitroglycerin 0.4 mg Tablet, Sublingual 0.4 mg sublingual UD RF: 0 vitamin B complex Capsule 1 cap PO DAILY RF: 0 bisacodyl 5 mg Tablet 20 mg PO DAILY RF: 0 Novolin 70-30 FlexPen U-100 100 unit/mL (70-30) Insulin Pen 40 unit SUBCUT BID RF: 0 ranolazine 500 mg Tablet Extended Release 12 Hr 500 mg PO BID RF: 0 Brilinta 90 mg Tablet 90 mg PO BID RF: 0 Discontinued metoprolol tartrate 25 mg Tablet 12.5 mg PO BID RF: 0 Discharge Orders: Discharge Order (Routine); Ordered 08/10/21 Ordered By: Minda Tejeda/Other Patient Handouts: A1C, Managing Type 2 Diabetes Admission Data Admit Date/Time: 08/09/21 13:37 Attending Provider: Minda Huizar I. Admit Provider: Lionel Hdez Primary Care Provider: Perez SOLIS Other Providers: Lionel Hdez ; Tomy Torres ; Geronimo Mayberry ; Toby Sanchez ; Darian Pacheco ; Timo Ramsey ; Gabriel Boggs ; Melina Oneal ; Sherrie Razo ; Elle Valente ; Nick Lim ; Sapphire De La Cruz Other Interventions: Discharge Summary Assessment (RN) Last Done: 08/10/21 13:23 Supervising Physician Co-Signing Physician Notes Spent 40mins in discharge planning, discussing with other providers, discharge counselling
== END 2021-08-10 15:01 | DRG 309 ==
LOC: ED 19:08 → 2S 19:08

== ENCOUNTER 2024-11-05 20:00 | Inpatient (IN) ==
[2024-11-05] MEDS: NITROGLYCERIN SL 0.4 MG/TAB TAB SL STA (20:10)
[2024-11-05] MEDS: NITROGLYCERIN SL 0.4 MG/TAB TAB ONE (20:16)
--- NOTE | 2024-11-05 20:20 | Emergency Department Note ---
Impression & Plan Chest pain, LBBB (left bundle branch block) ED Provider Note NAME: ANGELITO [id number] MARK AGE: 69 SEX: Male INFORMANT: Patient ED PROVIDER(S): Raffaele Armstrong MD CHIEF COMPLAINT: Chest pain PLAN: Disposition: Admitted Outpatient prescription management: none Referral: None MEDICAL DECISION MAKING: Patient presented with chest pain. It appears he has a new left bundle branch block. Prior to his arrival I did consult with Dr. Bianchi of interventional cardiology. He asked for the patient to be thoroughly assessed and if he could be pain-free and stable he would pursue medical management. If the patient was having ongoing problems then he may require intervention. Patient was evaluated and was feeling much better after 1 nitroglycerin prehospital. He was given a second nitroglycerin and became pain-free. He did have Nitropaste applied. He did also receive aspirin prehospital. The patient had an unremarkable CBC and chemistry panel except for his magnesium was mildly low. This was repleted. His cardiac troponin was within normal limits. Patient's BNP was minimally elevated but he has no significant shortness of breath or CHF findings at this time. Chest x-ray was unremarkable. Further management in the hospital will be necessary. Consultation was made with Dr. Lionel Hdez, [facility] hospitalist service. Case discussed and diagnostics were reviewed. The patient was evaluated in the ER and admitted for further management. Care/management discussed with: manager of maintenance, cardiology, EMS Level of care consideration(s): After review of the information above and other included data, I feel the patient requires escalation of care to admission Triage Nursing notes: reviewed and agree them. Vital Signs: reviewed and remarkable for no significant abnormalities Additional History obtained from: none Chronic Medical/Social Conditions affecting care: CAD Prior/ Outside/ External records reviewed: Present and prehospital ECGs reviewed. No ST elevation or Sgarbossa criteria. Patient did have a left bundle branch block noted. Differential Diagnosis: Cardiac ischemia, aortic dissection, pulmonary embolism, pneumothorax, pneumonia, pericarditis, myocarditis, esophageal rupture, GERD, cholecystitis, pancreatitis, musculoskeletal, as well as other pathologies. Diagnostics, independently interpreted by me: ECG: Prehospital ECG reveals a sinus rhythm at 66 bpm. Left bundle branch block present. No Sgarbossa criteria. Twelve-lead ECG in the emergency department reveals a sinus bradycardia 58 bpm. Left bundle branch block. When compared to ECG of 2020 the left bundle branch block is new. No PVCs noted. Cardiac Monitoring:Cardiac monitoring ordered by me: The patient was placed on continuous cardiac monitoring and observed. It revealed a normal sinus rhythm at 62 beats per minute without ectopy or evidence of dysrhythmia. Medical decision rules: Patient is HIGH RISK by heart score Imaging studies: Chest x-ray. Findings: A chest x-ray was performed and revealed no pneumothorax, effusion, infiltrate, pulmonary edema, free air under the diaphragm, or wide mediastinum. Impression: No acute disease. Loop recorder noted. HPI: 69 year old Male arrives for evaluation of chest pain. This started today and is intermittent and associated with exertion. Patient also notes that he is under a lot of stress and has similar pain in the past and noted having prior MIs. Patient states his last 1 was in 2020. He was given aspirin and nitroglycerin. 1 nitroglycerin took his pain from an 8 out of 10 down to 2 out of 10. The patient also notes the following associated symptoms, none. Pt denies LOC, headache, fevers, chills, diaphoresis, visual changes, neck pain, breathing difficulties, nausea, vomiting, abdominal pain, back pain, melena, hematochezia, urinary symptoms, numbness, weakness, lymphadenopathy, rash, or other complaints. PAST MEDICAL HISTORY: See Below, CAD, SVT PAST SURGICAL HISTORY: See Below, coronary stenting SOCIAL HISTORY: See Below, incarcerated HOME MEDICATIONS: See Below ALLERGIES: See Below VITALS: See Below PHYSICAL EXAMINATION: GENERAL: Awake, alert, well-appearing, in no distress HENT: Normocephalic, atraumatic. Oropharynx unremarkable. EYES: Normal conjunctiva. Sclera non-icteric. NECK: Inspection normal. Non-tender. Supple. No nuchal rigidity. FROM. No masses. RESPIRATORY: Clear to auscultation. No wheezes. No rales. Normal respiratory effort. CARDIAC: Normal rate. Normal rhythm. No murmurs. No rubs. Extremities warm and well perfused. Pulses equal. No JVD. GI: Soft, non-distended. No tenderness to palpation. No rebound or guarding. No masses. RECTAL: Deferred. MUSCULOSKELETAL: Atraumatic. Chest examination reveals no tenderness. The back is symmetrical on inspection without obvious abnormality. There is no CVA tenderness to palpation. No joint edema. LOWER EXTREMITIES: Calves are equal size bilaterally and non-tender. No edema. No discoloration. NEURO: Normal sensorium. No sensory or motor deficits noted. SKIN: No rash or jaundice noted. PROCEDURES: none CRITICAL CARE: none OBSERVATION NOTE: none Past Med/Surg History Problem List (Updated 11/05/24 @ 20:20 by Raffaele Armstrong MD) LBBB (left bundle branch block) (Acute) Ventricular tachycardia Aortic valve sclerosis History of coronary artery stent placement Chest pain (Acute) SVT (supraventricular tachycardia) (Acute) History of coronary artery disease (Acute) Lab test negative for COVID-19 virus (Acute) Social History Smoking Status: Never smoker Second Hand Exposure: Yes; Do You Dip or Chew Tobacco: No; Hx Alcohol Use: Yes Hx Substance Use: No Preferred Language: Nepali Communication Ability: Effective Substance Abuse Counselor Required: No Beliefs That Will Affect Care: None Current Living Situation: Other Current Living Situation Comment: [facility] Feels Safe at Home: Yes Assistive Devices: Glasses Allergies Allergies Allergy/AdvReac Type Severity Reaction Status Date / Time sulfamethoxazole Allergy Unknown Unverified 08/07/21 19:33 [From Bactrim] trimethoprim [From Bactrim] Allergy Unknown Unverified 08/07/21 19:33 Home Meds Home Medications Medication Instructions Recorded Confirmed aspirin 81 mg tablet,delayed 81 mg PO DAILY 08/07/21 11/05/24 release (Laura Low Dose Aspirin) atorvastatin 40 mg tablet 40 mg PO PM 08/07/21 11/05/24 calcium polycarbophil 625 mg 1,250 mg PO BID 08/07/21 11/05/24 tablet (Fiber-Lax) ferrous sulfate 325 mg (65 mg 325 mg PO BID 08/07/21 11/05/24 iron) tablet insulin NPH-regular 70-30 U-100 48 unit subcut BID 08/07/21 11/05/24 insulin 100 unit/mL subcutaneous pen (Novolin 70-30 FlexPen U-100 Insulin) isosorbide mononitrate 60 mg 60 mg PO DAILY 08/07/21 11/05/24 tablet,extended release 24 hr lisinopril 20 mg tablet 20 mg PO DAILY 08/07/21 11/05/24 metformin 1,000 mg tablet 1,000 mg PO BID 08/07/21 11/05/24 nitroglycerin 0.4 mg sublingual 0.4 mg sublingual UD 08/07/21 11/05/24 tablet omeprazole 40 mg capsule,delayed 40 mg PO DAILY 08/07/21 11/05/24 release ranolazine 500 mg tablet,extended 500 mg PO BID 08/07/21 11/05/24 release,12 hr ticagrelor 90 mg tablet (Brilinta) 90 mg PO BID 08/07/21 11/05/24 vitamin B complex 1 cap PO DAILY 08/07/21 11/05/24 metoprolol tartrate 25 mg tablet 50 mg PO BID 11/05/24 11/05/24 Results & Data (ED) Vital Signs Vital Signs - 24 hr 11/05/24 20:05 11/05/24 20:08 11/05/24 20:16 Temperature 36.8 C Temperature Source Oral Pulse Rate 66 63 Respiratory Rate 17 Respiratory Effort / Characteristics Non-Labored Spontaneous Respiratory Depth Normal Blood Pressure 156/84 H Blood Pressure Mean 108 Pulse Oximetry 99 96 Oxygen Delivery Method Room Air Room Air Sepsis Recent Fever Within 48 Hours No Sepsis New/Unexplained Change in Mental Status No Sepsis Action Taken by Nursing No Action Required Laboratory Data 11/05/24 20:18 11/05/24 20:18 Lab Results 11/05/24 11/05/24 Range/Units 20:18 20:23 WBC 6.35 (4.8-10.8) K/ul RBC 4.45 L (4.70-6.10) M/uL Hgb 11.2 L (14.0-18.0) g/dl POC Hgb 12.2 L (14.0-18.0) g/dl Hct 35.8 L (42.0-52.0) % POC Hct 36 L (42-52) % MCV 80.4 (80.0-100.0) fL MCH 25.2 (25.0-34.0) pg MCHC 31.3 L (32.0-36.0) g/dL RDW Std Deviation 42.7 (36.4-46.3) fL RDW Coeff of Berry 14.7 H (11.5-14.5) % Plt Count 234 (130-400) K/uL MPV 11.5 (9.4-12.4) fL Immature Gran % (Auto) 0.3 % Neut % (Auto) 52.8 % Lymph % (Auto) 30.7 % [place] % (Auto) 12.9 % Eos % (Auto) 2.8 % Baso % (Auto) 0.5 % Neut # (Auto) 3.35 (1.40-6.50) K/uL Lymph # (Auto) 1.95 (1.20-3.40) K/uL [place] # (Auto) 0.82 H (0.11-0.59) K/uL Eos # (Auto) 0.18 (0.00-0.50) K/uL Baso # (Auto) 0.03 (0.00-0.20) K/uL Immature Gran # (Auto) 0.02 (0.01-0.20) K/uL PT 10.4 (9.0-12.0) Seconds INR 1.0 (0.9-1.1) APTT 27 (21-31) Seconds PTT Ratio 1.0 POC Sodium 143 (135-144) mmol/L Sodium 142 (136-145) mmol/L POC Potassium 3.7 (3.3-5.0) mmol/L Potassium 3.8 (3.5-5.1) mmol/L POC Chloride 103 (101-112) mmol/L Chloride 106 (98-107) mmol/L Carbon Dioxide 30 (21-32) mmol/L POC Total CO2 28 (24-31) mmol/L Anion Gap 6 (3-11) POC Anion Gap 17.0 (16-25) mmol/L POC BUN 16 (7-18) mg/dl BUN 16 (6-23) mg/dl Creatinine 1.49 H (0.6-1.4) mg/dl POC Creatinine 1.6 H (0.6-1.3) mg/dl Est Cr Clr Drug Dosing 52.1 ml/min eGFR 50.17 BUN/Creatinine Ratio 10.7 (10-20) Glucose 104 H (70-99(Fasting)) mg/dl POC Glucose (other) 99 (70-99) mg/dl Calcium 8.8 (8.6-10.3) mg/dl POC Ioniz Calcium Linsey 1.12 (1.12-1.32) mmol/l Magnesium 1.5 L (1.7-2.4) mg/dl Total Bilirubin 0.4 (0.2-1.0) mg/dl AST 37 (13-39) U/L ALT 38 (7-52) U/L Alkaline Phosphatase 57 (34-104) U/L Total Creatine Kinase 332 H (30-223) U/L Troponin I High Sens 13.8 (0-20) pg/ml B-Natriuretic Peptide 109 H (0-100) pg/ml Total Protein 6.7 (6.0-8.3) gm/dl Albumin 3.9 (3.4-5.0) gm/dl Globulin 2.8 (2.5-4.0) gm/dl Albumin/Globulin Ratio 1.4 (0.9-2) Lipase 66 (11-82) U/L TSH 0.816 (0.300-4.500) uIu/ml Administered Medications Magnesium Sulfate/Dextrose (Magnesium Sulfate / D5w) 1 gm in 100 mls @ 50 mls/hr IV ONE ONE Stop: 11/05/24 22:55 Last Admin: 11/05/24 21:03 Dose: 50 mls/hr Documented By: BRADFORD Discontinued Medications Nitroglycerin (Nitroglycerin Sl 0.4 Mg/Tab Tab) Confirm Administered Dose 0.4 mg .ROUTE .STK-MED ONE Stop: 11/05/24 20:08 Last Admin: 11/05/24 20:16 Dose: Not Given Documented By: JESÚS Nitroglycerin (Nitroglycerin Sl 0.4 Mg/Tab Tab) 0.4 mg SL NOW STA Stop: 11/05/24 20:09 Last Admin: 11/05/24 20:10 Dose: 0.4 mg Documented By: JESÚS Nitroglycerin (Nitroglycerin 2% Ointment 30gm Tube) 0.5 inch EXT NOW STA Stop: 11/05/24 20:09 Last Admin: 11/05/24 20:25 Dose: 0.5 inch Documented By: JESÚS Discharge Plan Visit Data Chief Complaint: Chest Pain Stated Complaint: CHEST PAIN ED Provider: Raffaele Armstrong Discharge Problem: Chest pain, LBBB (left bundle branch block) Forms Stand Alone Forms: [facility] Prescriptions Prescriptions: No Action atorvastatin 40 mg Tablet 40 mg PO PM lisinopril 20 mg Tablet 20 mg PO DAILY omeprazole 40 mg Capsule,Delayed Release(Dr/Ec) 40 mg PO DAILY aspirin [Laura Low Dose Aspirin] 81 mg Tablet,Delayed Release (Dr/Ec) 81 mg PO DAILY isosorbide mononitrate 60 mg Tablet Extended Release 24 Hr 60 mg PO DAILY ferrous sulfate 325 mg (65 mg iron) Tablet 325 mg PO BID metformin 1,000 mg Tablet 1,000 mg PO BID calcium polycarbophil [Fiber-Lax] 625 mg Tablet 1,250 mg PO BID nitroglycerin 0.4 mg Tablet, Sublingual 0.4 mg sublingual UD vitamin B complex Capsule 1 cap PO DAILY Novolin 70-30 FlexPen U-100 100 unit/mL (70-30) Insulin Pen 48 unit SUBCUT BID ranolazine 500 mg Tablet Extended Release 12 Hr 500 mg PO BID Brilinta 90 mg Tablet 90 mg PO BID metoprolol tartrate 25 mg tablet 50 mg PO BID Referrals Referrals: Perez SOLIS [Primary Care Provider] -
[2024-11-05] MEDS: NITROGLYCERIN 2% OINTMENT 30GM TUBE EXT STA (20:25)
[2024-11-05 20:38] LABS: iSTAT Creatinine 1.6 mg/dl (0.6-1.3); iSTAT Hemoglobin 12.2 g/dl (14.0-18.0); iSTAT Ionized Calcium 1.12 mmol/l (1.12-1.32); iSTAT Potassium 3.7 mmol/L (3.3-5.0)
[2024-11-05 20:52] LABS: Basophils # (auto) 0.03 K/uL (0.00-0.20); Basophils % (auto) 0.5 %; Eosinophils # (auto) 0.18 K/uL (0.00-0.50); Eosinophils % (auto) 2.8 %; Hematocrit (blood only) 35.8 % (42.0-52.0); Hemoglobin 11.2 g/dl (14.0-18.0); Immature Granulocytes # (auto) 0.02 K/uL (0.01-0.20); Immature Granulocytes % (auto) 0.3 %; Lymphocytes # (auto) 1.95 K/uL (1.20-3.40); Lymphocytes % (auto) 30.7 %; Mean Corpuscular Hemoglobin 25.2 pg (25.0-34.0); Mean Corpuscular Hgb Conc 31.3 g/dL (32.0-36.0); Mean Corpuscular Volume 80.4 fL (80.0-100.0); Mean Platelet Volume 11.5 fL (9.4-12.4); Monocytes # (auto) 0.82 K/uL (0.11-0.59); Monocytes % (auto) 12.9 %; Neutrophils # (auto) 3.35 K/uL (1.40-6.50); Neutrophils % (auto) 52.8 %; Platelet Count 234 K/uL (130-400); RDW Coefficient of Variation 14.7 % (11.5-14.5); RDW Standard Deviation 42.7 fL (36.4-46.3); Red Blood Count 4.45 M/uL (4.70-6.10); White Blood Count 6.35 K/ul (4.8-10.8)
[2024-11-05 20:54] LABS: Albumin Globulin Ratio 1.4 (0.9-2); Albumin Level 3.9 gm/dl (3.4-5.0); BUN Creatinine Ratio 10.7 (10-20); Bilirubin,Total 0.4 mg/dl (0.2-1.0); Calcium 8.8 mg/dl (8.6-10.3); Creatinine Clr Calc Pharmacy 52.1 ml/min; Globulin 2.8 gm/dl (2.5-4.0); Magnesium 1.5 mg/dl (1.7-2.4); Potassium 3.8 mmol/L (3.5-5.1); Total Protein 6.7 gm/dl (6.0-8.3)
[2024-11-05 21:00] LABS: Troponin I High Sensitivity 13.8 pg/ml (0-20)
[2024-11-05] MEDS: MAGNESIUM SULFATE / D5W 1 GM/100 ML BAG IV ONE ×2 (21:03→23:36)
[2024-11-05 21:10] LABS: Thyroid Stimulating Hormone 0.816 uIu/ml (0.300-4.500)
[2024-11-05 21:17] LABS: Partial Thromboplastin Time 27 Seconds (21-31); Prothrombin Time 10.4 Seconds (9.0-12.0)
--- NOTE | 2024-11-05 22:25 | XRay Report ---
Exam(s): XR CXR 1 VIEW EXAM: XR Chest, 1 View CLINICAL HISTORY: Reason for exam: Chest pain, nonspecific. TECHNIQUE: Frontal view of the chest. COMPARISON: 08/07/21 FINDINGS: Lungs: Unremarkable. No consolidation. Pleural space: Unremarkable. No pleural effusion or pneumothorax. Heart: Mild cardiomegaly. Bones/joints: No acute fracture. No dislocation. Tubes, lines and devices: Loop recorder projects over the left chest. IMPRESSION: Mild cardiomegaly. No acute findings. Electronically signed by: Yasmin Mora M.D. 11/05/24 22:24 PM
[2024-11-05] MEDS: METOPROLOL TARTRATE 1 MG/ML VIAL IV STA (22:39)
--- NOTE | 2024-11-05 23:01 | History & Physical Report ---
Date of Service November 05, 2024 Assessment & Plan (1) Chest pain: Plan: Chest pain With new left bundle branch block Possible ACS hx CAD status post stent Recent personal stressors at correctional facility VT/PSVT as per records, patient currently with loop recorder hypertension, stable hyperlipidemia, on statin Rx DM2 insulin requiring, reasonable control as of last hemoglobin A1c of 7.3 from 2020 CRI, creatinine at baseline chronic anemia, at baseline colon cancer status post surgery Hypomagnesemia possibly from chronic diarrhea symptoms PCU Continue antiplatelet Rx, beta-nasir, and statin Rx Follow troponin, IV heparin if with progression TTE, Cardiology consult Re: Chest pain, new left bundle branch block (ER provider already in touch with foam rubber molder who recommended medical management for now if patient comfortable.) N.p.o. after midnight in anticipation of ischemic workup Basal bolus insulin adjusted for n.p.o. status, ISS BG goal 1 10-1 40, update hemoglobin A1c Replace electrolytes DVT prophylaxis. Heparin subcu Full code Text document was generated using [employer] voice recognition software. It may contain grammatical or spelling errors. Kindly contact undersigned for clarification of any documentation item in question. History of Present Illness Chief Complaint: Chest pain Primary Care Provider: [facility] History obtained from patient and records. Medical history significant for CAD status post stent, VT/PSVT as per records, hypertension, hyperlipidemia, DM2 insulin requiring, CRI (baseline creatinine 1.6), chronic anemia (baseline hemoglobin 10-11), colon cancer status post surgery, GERD. Last confinement August 2021 for chest pain. NSVT during confinement. Beta-nasir dose increased on discharge. Patient stressed out the last couple of weeks after being moved to a [facility]. He had left-sided chest discomfort today similar to anginal attacks in the past but not as bad. Symptoms improved by aspirin and nitroglycerin Rx. Patient unaware of blood pressure control at correctional facility. Loop recorder placed by Verito night clerk auditor few months ago for fast heartbeat. Patient feels sweaty during episodes. No recent episodes. New left bundle branch block noted on EKG. Nitropaste administered at the ER. Patient currently comfortable. Medical History as above Surgical History : Bowel surgery Family History : DM Personal/Social history : Non-smoker, no EtOH intake, prior work as a [employer] Allergies Allergy/AdvReac Type Severity Reaction Status Date / Time sulfamethoxazole Allergy Unknown Unverified 08/07/21 19:33 [From Bactrim] trimethoprim [From Bactrim] Allergy Unknown Unverified 08/07/21 19:33 Home Medications Medication Instructions Recorded Confirmed Type aspirin 81 mg tablet,delayed 81 mg PO DAILY 08/07/21 11/05/24 History release (Laura Low Dose Aspirin) atorvastatin 40 mg tablet 40 mg PO PM 08/07/21 11/05/24 History calcium polycarbophil 625 mg 1,250 mg PO BID 08/07/21 11/05/24 History tablet (Fiber-Lax) ferrous sulfate 325 mg (65 mg 325 mg PO BID 08/07/21 11/05/24 History iron) tablet insulin NPH-regular 70-30 U-100 48 unit subcut BID 08/07/21 11/05/24 History insulin 100 unit/mL subcutaneous pen (Novolin 70-30 FlexPen U-100 Insulin) isosorbide mononitrate 60 mg 60 mg PO DAILY 08/07/21 11/05/24 History tablet,extended release 24 hr lisinopril 20 mg tablet 20 mg PO DAILY 08/07/21 11/05/24 History metformin 1,000 mg tablet 1,000 mg PO BID 08/07/21 11/05/24 History nitroglycerin 0.4 mg sublingual 0.4 mg sublingual UD 08/07/21 11/05/24 History tablet omeprazole 40 mg capsule,delayed 40 mg PO DAILY 08/07/21 11/05/24 History release ranolazine 500 mg tablet,extended 500 mg PO BID 08/07/21 11/05/24 History release,12 hr ticagrelor 90 mg tablet (Brilinta) 90 mg PO BID 08/07/21 11/05/24 History vitamin B complex 1 cap PO DAILY 08/07/21 11/05/24 History metoprolol tartrate 25 mg tablet 50 mg PO BID 11/05/24 11/05/24 History Past Med/Surg History Problem List (Updated 11/05/24 @ 20:20 by Raffaele Armstrong MD) LBBB (left bundle branch block) (Acute) Ventricular tachycardia Aortic valve sclerosis History of coronary artery stent placement Chest pain (Acute) SVT (supraventricular tachycardia) (Acute) History of coronary artery disease (Acute) Lab test negative for COVID-19 virus (Acute) Social History Smoking Status: Never smoker Second Hand Exposure: Yes; Do You Dip or Chew Tobacco: No; Hx Alcohol Use: Yes Hx Substance Use: No Preferred Language: Emirati Communication Ability: Effective Construction Project Mgr Required: No Beliefs That Will Affect Care: None Current Living Situation: Other Current Living Situation Comment: [facility] Feels Safe at Home: Yes Assistive Devices: Glasses Review of Systems Review of Systems: As per HPI, all other systems reviewed and negative Physical Exam Physical Exam: GENERAL: Comfortable, obese, pleasant, no respiratory distress SKIN: Pallor, warm HEENT: Wearing sunglasses, pale palpebral conjunctivae, no ptosis, moist buccal mucosa NECK : Supple, short neck, no tenderness CHEST : CTA, no tenderness HEART : RRR, no obvious murmurs ABDOMEN: Some distention, nontender EXTREMITIES : nol LE swelling, no LE tenderness, no other conspicuous deformities noted NEUROLOGIC : Coherent, no facial asymmetry, no other gross focality Results & Data Results & Data Vital Signs (Past 12 Hours) Vital Signs Temp Pulse Pulse Resp BP BP Pulse Ox 11/05/24 22:39 60 148/80 H 11/05/24 22:35 60 26 H 148/80 H 93 11/05/24 21:51 61 29 H 187/100 H 94 11/05/24 20:16 96 11/05/24 20:08 36.8 C 63 17 156/84 H 99 11/05/24 20:05 66 O2 Del Method 11/05/24 22:39 11/05/24 22:35 Room Air 11/05/24 21:51 Room Air 11/05/24 20:16 Room Air 11/05/24 20:08 Room Air 11/05/24 20:05 Laboratory Results Laboratory Results WBC 6.35 K/ul (4.8-10.8) 11/05/24 20:18 RBC 4.45 M/uL (4.70-6.10) L 11/05/24 20:18 Hgb 11.2 g/dl (14.0-18.0) L 11/05/24 20:18 POC Hgb 12.2 g/dl (14.0-18.0) L 11/05/24 20:23 Hct 35.8 % (42.0-52.0) L 11/05/24 20:18 POC Hct 36 % (42-52) L 11/05/24 20:23 MCV 80.4 fL (80.0-100.0) 11/05/24 20:18 MCH 25.2 pg (25.0-34.0) 11/05/24 20:18 MCHC 31.3 g/dL (32.0-36.0) L 11/05/24 20:18 RDW Std Deviation 42.7 fL (36.4-46.3) 11/05/24 20:18 RDW Coeff of Berry 14.7 % (11.5-14.5) H 11/05/24 20:18 Plt Count 234 K/uL (130-400) 11/05/24 20:18 MPV 11.5 fL (9.4-12.4) 11/05/24 20:18 Immature Gran % (Auto) 0.3 % 11/05/24 20:18 Neut % (Auto) 52.8 % 11/05/24 20:18 Lymph % (Auto) 30.7 % 11/05/24 20:18 [place] % (Auto) 12.9 % 11/05/24 20:18 Eos % (Auto) 2.8 % 11/05/24 20:18 Baso % (Auto) 0.5 % 11/05/24 20:18 Neut # (Auto) 3.35 K/uL (1.40-6.50) 11/05/24 20:18 Lymph # (Auto) 1.95 K/uL (1.20-3.40) 11/05/24 20:18 [place] # (Auto) 0.82 K/uL (0.11-0.59) H 11/05/24 20:18 Eos # (Auto) 0.18 K/uL (0.00-0.50) 11/05/24 20:18 Baso # (Auto) 0.03 K/uL (0.00-0.20) 11/05/24 20:18 Immature Gran # (Auto) 0.02 K/uL (0.01-0.20) 11/05/24 20:18 PT 10.4 Seconds (9.0-12.0) 11/05/24 20:18 INR 1.0 (0.9-1.1) 11/05/24 20:18 APTT 27 Seconds (-31) 11/05/24 20:18 PTT Ratio 1.0 11/05/24 20:18 POC Sodium 143 mmol/L (135-144) 11/05/24 20:23 Sodium 142 mmol/L (136-145) 11/05/24 20:18 POC Potassium 3.7 mmol/L (3.3-5.0) 11/05/24 20:23 Potassium 3.8 mmol/L (3.5-5.1) 11/05/24 20:18 POC Chloride 103 mmol/L (101-112) 11/05/24 20:23 Chloride 106 mmol/L (98-107) 11/05/24 20:18 Carbon Dioxide 30 mmol/L (21-32) 11/05/24 20:18 POC Total CO2 28 mmol/L (24-31) 11/05/24 20:23 Anion Gap 6 (3-11) 11/05/24 20:18 POC Anion Gap 17.0 mmol/L (16-25) 11/05/24 20:23 POC BUN 16 mg/dl (7-18) 11/05/24 20:23 BUN 16 mg/dl (6-23) 11/05/24 20:18 Creatinine 1.49 mg/dl (0.6-1.4) H 11/05/24 20:18 POC Creatinine 1.6 mg/dl (0.6-1.3) H 11/05/24 20:23 Est Cr Clr Drug Dosing 52.1 ml/min 11/05/24 20:18 eGFR 50.17 11/05/24 20:18 BUN/Creatinine Ratio 10.7 (10-20) 11/05/24 20:18 Glucose 104 mg/dl (70-99(Fasting)) H 11/05/24 20:18 POC Glucose (other) 99 mg/dl (70-99) 11/05/24 20:23 Calcium 8.8 mg/dl (8.6-10.3) 11/05/24 20:18 POC Ioniz Calcium Linsey 1.12 mmol/l (1.12-1.32) 11/05/24 20:23 Magnesium 1.5 mg/dl (1.7-2.4) L 11/05/24 20:18 Total Bilirubin 0.4 mg/dl (0.2-1.0) 11/05/24 20:18 AST 37 U/L (13-39) 11/05/24 20:18 ALT 38 U/L (7-52) 11/05/24 20:18 Alkaline Phosphatase 57 U/L (34-104) 11/05/24 20:18 Total Creatine Kinase 332 U/L (30-223) H 11/05/24 20:18 Troponin I High Sens 13.8 pg/ml (0-20) 11/05/24 20:18 B-Natriuretic Peptide 109 pg/ml (0-100) H 11/05/24 20:18 Total Protein 6.7 gm/dl (6.0-8.3) 11/05/24 20:18 Albumin 3.9 gm/dl (3.4-5.0) 11/05/24 20:18 Globulin 2.8 gm/dl (2.5-4.0) 11/05/24 20:18 Albumin/Globulin Ratio 1.4 (0.9-2) 11/05/24 20:18 Lipase 66 U/L (11-82) 11/05/24 20:18 TSH 0.816 uIu/ml (0.300-4.500) 11/05/24 20:18 Impressions Chest X-Ray 11/05/24 20:03 Exam(s): XR CXR 1 VIEW EXAM: XR Chest, 1 View CLINICAL HISTORY: Reason for exam: Chest pain, nonspecific. TECHNIQUE: Frontal view of the chest. COMPARISON: 08/07/21 FINDINGS: Lungs: Unremarkable. No consolidation. Pleural space: Unremarkable. No pleural effusion or pneumothorax. Heart: Mild cardiomegaly. Bones/joints: No acute fracture. No dislocation. Tubes, lines and devices: Loop recorder projects over the left chest. IMPRESSION: Mild cardiomegaly. No acute findings. Electronically signed by: Yasmin Mora M.D. 11/05/24 22:24 PM Diagnostic Findings EKG as per my interpretation :Rate 55, sinus bradycardia, LBBB
[2024-11-05] MEDS ORDERED: LORazepam 0.5 MG TAB PO PRN (23:04)
[2024-11-05] MEDS ORDERED: HYDROmorphone INJ 0.5 MG/0.5 ML SYR IV PRN (23:04)
[2024-11-05] MEDS ORDERED: PROMETHAZINE 6.25 MG/50.25 ML BAG IV PRN (23:04)
[2024-11-05] MEDS ORDERED: NITROGLYCERIN SL 0.4 MG/TAB TAB SL PRN (23:04)
[2024-11-05] MEDS ORDERED: oxyCODONE HCL IR 5 MG TAB (IMMEDIATE RELEASE) PO PRN (23:07)
[2024-11-05] MEDS ORDERED: ACETAMINOPHEN 325 MG TAB PO PRN (23:07)
[2024-11-05] MEDS ORDERED: GLUCOSE 40% GEL 15 GM TUBE PO PRN (23:33)
[2024-11-05] MEDS ORDERED: DEXTROSE 50% 50 ML SYRINGE IV PRN (23:33)
[2024-11-05] MEDS ORDERED: CARBOHYDRATES FOR HYPOGLYCEMIA PO PRN (23:33)
[2024-11-05] MEDS ORDERED: GLUCOSE 10 TAB/TUBE PO PRN (23:33)
[2024-11-05] MEDS ORDERED: GLUCAGON FOR INJ 1 MG VIAL SQ PRN (23:33)
[2024-11-06] MEDS: SODIUM CHLOR 0.45% + 20MEQ KCL 20 MEQ/1,000 ML BAG IV ONE (00:47)
[2024-11-06] MEDS: INSULIN ASPART PER UNIT CHARGE SC SCH (00:47)
[2024-11-06] MEDS: HEPARIN SOD 5,000 UNIT/0.5 ML VIAL SQ SCH (05:56)
[2024-11-06] MEDS: ISOSORBIDE MONO EXTENDED REL 60 MG TABCR PO STA (06:46)
[2024-11-06 07:18] LABS: Estimated Average Glucose 151 mg/dl; Hemoglobin A1C 6.9 % (4.5-5.6)
[2024-11-06 07:20] LABS: Basophils # (auto) 0.03 K/uL (0.00-0.20); Basophils % (auto) 0.4 %; Eosinophils # (auto) 0.19 K/uL (0.00-0.50); Eosinophils % (auto) 2.5 %; Hematocrit (blood only) 33.9 % (42.0-52.0); Hemoglobin 10.7 g/dl (14.0-18.0); Immature Granulocytes # (auto) 0.03 K/uL (0.01-0.20); Immature Granulocytes % (auto) 0.4 %; Lymphocytes # (auto) 1.09 K/uL (1.20-3.40); Lymphocytes % (auto) 14.4 %; Mean Corpuscular Hgb Conc 31.6 g/dL (32.0-36.0); Mean Corpuscular Volume 79.2 fL (80.0-100.0); Mean Platelet Volume 10.8 fL (9.4-12.4); Monocytes # (auto) 0.85 K/uL (0.11-0.59); Monocytes % (auto) 11.3 %; Neutrophils # (auto) 5.36 K/uL (1.40-6.50); Platelet Count 210 K/uL (130-400); RDW Coefficient of Variation 14.7 % (11.5-14.5); RDW Standard Deviation 42.1 fL (36.4-46.3); Red Blood Count 4.28 M/uL (4.70-6.10); White Blood Count 7.55 K/ul (4.8-10.8)
[2024-11-06 07:32] LABS: Calcium 8.1 mg/dl (8.6-10.3); Chol HDL Ratio 2.4 (0-5); Creatinine Clr Calc Pharmacy 53.2 ml/min; Magnesium 1.7 mg/dl (1.7-2.4); Potassium 4.4 mmol/L (3.5-5.1)
[2024-11-06] MEDS: LANTUS PER UNIT CHARGE SQ SCH (08:58)
[2024-11-06] MEDS: PANTOprazole 40 MG TAB PO SCH (09:00)
[2024-11-06] MEDS ORDERED: ISOSORBIDE MONO EXTENDED REL 60 MG TABCR PO SCH (09:00)
[2024-11-06] MEDS: VITAMIN B COMPLEX TAB PO SCH (09:01)
[2024-11-06] MEDS: TICAGRELOR 90 MG TAB PO SCH (09:01)
[2024-11-06] MEDS: RANOLAZINE 500 MG ER TAB PO SCH (09:01)
[2024-11-06] MEDS: ASPIRIN 81 MG ECTAB PO SCH (09:01)
[2024-11-06] MEDS: FERROUS SULFATE 325 MG TAB PO SCH (09:01)
[2024-11-06] MEDS: METOPROLOL TARTRATE 50 MG TAB PO SCH (09:01)
--- NOTE | 2024-11-06 16:10 | Hospitalist Progress Note ---
Date of Service November 06, 2024 Assessment & Plan (1) Chest pain: Plan: Chest pain hx of CAD status post stent Patient presented with chest pain. Reported history of CAD status post stent EKG shows normal sinus rhythm with left bundle branch block; EKG from 2020 did not have LBBB High sensitive troponin negative Echo shows mild concentric LVH; EF of 45 to 50%; small mobile echodensity visualized on the aortic side of left coronary aortic valve Cusp. Findings may be represent sclerosis, lambl excrescence, thrombus, mass or vegetations. Grade 1 diastolic dysfunction Discussed with cardiology; plan for stress test tomorrow a.m. Continue on aspirin, Brilinta, Lipitor, lisinopril and metoprolol Continue on telemetry Continue Ranolazine Chronic conditions VT/PSVT as per records, patient currently with loop recorder hypertension, stable - continue lisinopril and metoprolol hyperlipidemia, on statin Rx- continue DM2 insulin requiring, reasonable control as of last hemoglobin A1c of 7.3 from 2020 CRI, creatinine at baseline chronic anemia, at baseline colon cancer status post surgery Hypomagnesemia possibly from chronic diarrhea symptoms DVT prophylaxis heparin Full code Text document was generated using [employer] voice recognition software. It may contain grammatical or spelling errors. Kindly contact undersigned for clarification of any documentation item in question. Admission and Anticipated Discharge Date Admission Date: November 05, 2024 Subjective Patient seen and examined at bedside. Comfortable; not in distress. Denies fever, chills, chest pain, shortness of breath, abdominal pain or urinary symptoms. No significant overnight events Review of Systems Review of Systems: All systems reviewed & are unremarkable except as noted in Subjective Physical Exam Physical Exam: GENERAL: Comfortable, obese, pleasant, no respiratory distress SKIN: Pallor, warm HEENT: Wearing sunglasses, pale palpebral conjunctivae, no ptosis, moist buccal mucosa NECK : Supple, short neck, no tenderness CHEST : CTA, no tenderness HEART : RRR, no obvious murmurs ABDOMEN: Some distention, nontender EXTREMITIES : nol LE swelling, no LE tenderness, no other conspicuous deformities noted NEUROLOGIC : Coherent, no facial asymmetry, no other gross focality Results & Data Results & Data Vital Signs (Past 12 Hours) Vital Signs Pulse Pulse Resp BP BP Pulse Ox O2 Del Method 11/06/24 15:30 55 L 11/06/24 11:27 56 L 20 133/71 100 Nasal Cannula 11/06/24 08:06 60 13 128/72 100 11/06/24 07:01 60 11/06/24 06:30 72 15 144/79 H 99 Nasal Cannula 11/06/24 06:00 66 16 155/85 H 98 Nasal Cannula 11/06/24 05:30 58 L 14 171/98 H 99 Nasal Cannula 11/06/24 05:00 56 L 17 148/82 H 99 Nasal Cannula 11/06/24 04:30 55 L 14 143/78 H 99 Nasal Cannula O2 Flow Rate 11/06/24 15:30 11/06/24 11:27 2 11/06/24 08:06 2 11/06/24 07:01 11/06/24 06:30 2 11/06/24 06:00 2 11/06/24 05:30 2 11/06/24 05:00 2 11/06/24 04:30 2
--- NOTE | 2024-11-06 18:10 | Cardiology Consultation ---
Date of Consultation November 06, 2024 Assessment & Plan (1) Chest pain: (2) LBBB (left bundle branch block): EKG on presentation and performed again on 11/06/2024 at 8:48 AM revealed sinus bradycardia with left bundle branch block. The QRS duration was 160 ms. The left bundle branch block was new compared to previous tracings performed at this institution in 2020. High-sensitivity troponin has been negative x 3. Echocardiogram performed today and reviewed independently revealed abnormal septal motion consistent with left bundle branch block, the left ventricular regional wall motion is otherwise normal with mildly reduced left ventricular ejection fraction in the range of 45 to 50% with noted previous ejection fraction of 45% per the [facility] notes in 2020 and ejection fraction the range of 50 to 55% at the time of hospital stay for SVT at [facility] in 2020. Therapeutics: Continue aspirin, Brilinta, ranolazine, metoprolol, atorvastatin Imdur. Plan for pharmacologic nuclear stress test hopefully on 11/07/2024 for scheduling permits. Patient agreeable to the plan. History of Present Illness Attending Physician: Akbar Haney MD History of Present Illness Mr Batista is a 69 year old male seen in cardiology consultation per the request of Dr Hdez for the evaluation of chest pain. Patient is an inmate at the [facility] institution. He presents having had chest discomfort onset yesterday afternoon at approximately 1:30 PM that persisted. It started when he was walking from where he is housed to where he receives his medication. He notes that recently his housing location within the corrections institution was changed as of 10/21/2024 and he feels like he has had increasing stressors placed on him in the meantime. During my assessment he was chest pain-free. Cardiac History: Patient has followed within the [facility] system and [facility] in the past. November 2018, inferior STEMI underwent PCI to the right coronary with drug- eluting stent Subsequently underwent PCI drug-eluting stent to the LAD Most recent cardiac catheterization took place at [facility] June 2021 at that time undergoing successful PCI drug-eluting stent of a chronic total occlusion of the obtuse marginal branch of the circumflex coronary He has remained on chronic dual antiplatelet therapy aspirin and Brilinta. In 2020 when he was hospitalized at [facility] with supraventricular tachycardia and had in the meantime undergone a loop recorder which he believes was placed within the [facility] Allergies Allergy/AdvReac Type Severity Reaction Status Date / Time sulfamethoxazole Allergy Unknown Unverified 08/07/21 19:33 [From Bactrim] trimethoprim [From Bactrim] Allergy Unknown Unverified 08/07/21 19:33 Home Medications Medication Instructions Recorded Confirmed Type aspirin 81 mg tablet,delayed 81 mg PO DAILY 08/07/21 11/05/24 History release (Laura Low Dose Aspirin) atorvastatin 40 mg tablet 40 mg PO PM 08/07/21 11/05/24 History calcium polycarbophil 625 mg 1,250 mg PO BID 08/07/21 11/05/24 History tablet (Fiber-Lax) ferrous sulfate 325 mg (65 mg 325 mg PO BID 08/07/21 11/05/24 History iron) tablet insulin NPH-regular 70-30 U-100 48 unit subcut BID 08/07/21 11/05/24 History insulin 100 unit/mL subcutaneous pen (Novolin 70-30 FlexPen U-100 Insulin) isosorbide mononitrate 60 mg 60 mg PO DAILY 08/07/21 11/05/24 History tablet,extended release 24 hr lisinopril 20 mg tablet 20 mg PO DAILY 08/07/21 11/05/24 History metformin 1,000 mg tablet 1,000 mg PO BID 08/07/21 11/05/24 History nitroglycerin 0.4 mg sublingual 0.4 mg sublingual UD 08/07/21 11/05/24 History tablet omeprazole 40 mg capsule,delayed 40 mg PO DAILY 08/07/21 11/05/24 History release ranolazine 500 mg tablet,extended 500 mg PO BID 08/07/21 11/05/24 History release,12 hr ticagrelor 90 mg tablet (Brilinta) 90 mg PO BID 08/07/21 11/05/24 History vitamin B complex 1 cap PO DAILY 08/07/21 11/05/24 History metoprolol tartrate 25 mg tablet 50 mg PO BID 11/05/24 11/05/24 History Patient History Social History Smoking Status: Never smoker Second Hand Exposure: No; Do You Dip or Chew Tobacco: No; Tobacco Cessation Education Requested by Patient: No Hx Alcohol Use: No Hx Substance Use: No Preferred Language: Israeli Communication Ability: Effective Locomotive Oiler Required: No Beliefs That Will Affect Care: None Current Living Situation: Other Current Living Situation Comment: [facility] Other Information That Helps Us Care for You: No Feels Safe at Home: Yes Safety Concerns: Feels Safe At This Time Assistive Devices: None Review of Systems Review of Systems: All systems reviewed & are unremarkable except as noted in HPI & below Physical Exam Physical Exam: General: no acute distress and stated age Eyes: conjunctiva are pink and non-injected, sclera clear Neck: normal jugular venous pulse, no hepatojugular reflux Chest: normal shape and normal respiratory effort Lungs: clear to auscultation and percussion Cardiac Exam: - regular heart sounds, no murmurs, rubs, or gallops, no jugular venous distention Abdomen: abdomen soft, non-tender, no abnormal masses and no hepatosplenomegaly Musculoskeletal: no gait disturbance, no weakness Extremities: no edema and no cyanosis Neuro:awake, conversant, follows commands, no focal motor deficits Psych: appropriate affect and insight. Results & Data Vital Signs (Past 12 Hours) Vital Signs Pulse Pulse Resp BP BP Pulse Ox O2 Del Method 11/06/24 15:30 55 L 11/06/24 11:27 56 L 20 133/71 100 Nasal Cannula 11/06/24 08:06 60 13 128/72 100 11/06/24 07:01 60 11/06/24 06:30 72 15 144/79 H 99 Nasal Cannula 11/06/24 06:00 66 16 155/85 H 98 Nasal Cannula O2 Flow Rate 11/06/24 15:30 11/06/24 11:27 2 11/06/24 08:06 2 11/06/24 07:01 11/06/24 06:30 2 11/06/24 06:00 2 Laboratory Results Cardiac Enzymes 11/05/24 11/05/24 11/06/24 Range/Units 20:18 23:29 06:38 AST 37 (13-39) U/L Troponin I High Sens 13.8 15.3 13.1 (0-20) pg/ml B-Natriuretic Peptide 109 H (0-100) pg/ml Coagulation 11/05/24 Range/Units 20:18 PT 10.4 (9.0-12.0) Seconds APTT 27 (21-31) Seconds B-Natriuretic Peptide 109 H (0-100) pg/ml Lipids 11/06/24 Range/Units 06:38 Triglycerides 82 (0-150) mg/dl Cholesterol 111 (0-200) mg/dl HDL Cholesterol 47 mg/dl Cholesterol/HDL Ratio 2.4 (0-5) CBC 11/05/24 11/06/24 Range/Units 20:18 06:38 WBC 6.35 7.55 (4.8-10.8) K/ul RBC 4.45 L 4.28 L (4.70-6.10) M/uL Hgb 11.2 L 10.7 L (14.0-18.0) g/dl Hct 35.8 L 33.9 L (42.0-52.0) % Plt Count 234 210 (130-400) K/uL Neut # (Auto) 3.35 5.36 (1.40-6.50) K/uL Lymph # (Auto) 1.95 1.09 L (1.20-3.40) K/uL [place] # (Auto) 0.82 H 0.85 H (0.11-0.59) K/uL Eos # (Auto) 0.18 0.19 (0.00-0.50) K/uL Baso # (Auto) 0.03 0.03 (0.00-0.20) K/uL Comprehensive Metabolic Panel 11/05/24 11/06/24 Range/Units 20:18 06:38 Sodium 142 142 (136-145) mmol/L Potassium 3.8 4.4 (3.5-5.1) mmol/L Chloride 106 108 H (98-107) mmol/L Carbon Dioxide 30 30 (21-32) mmol/L BUN 16 19 (6-23) mg/dl Creatinine 1.49 H 1.46 H (0.6-1.4) mg/dl Glucose 104 H 136 H (70-99(Fasting)) mg/dl Calcium 8.8 8.1 L (8.6-10.3) mg/dl AST 37 (13-39) U/L ALT 38 (7-52) U/L Alkaline Phosphatase 57 (34-104) U/L Total Protein 6.7 (6.0-8.3) gm/dl Albumin 3.9 (3.4-5.0) gm/dl Intake and Output 11/06/24 11/06/24 11/06/24 06:59 14:59 22:59 Intake Total 200 / 200 Balance 200 / 200 Intake: IV 200 / 200 Magnesium Sulfate / D5w 1 gm In 200 / 200 100 ml @ 50 mls/hr IV ONE ONE Rx#:[id number] Other: Other Intake Source Pt. ate 100% of lunch tray. Weight 81.4 kg 81.4 kg Weight Measurement Method Built in [facility] Built in [facility] Patient Weight 11/07/24 06:59 Weight 81.4 kg
[2024-11-06] MEDS: ATORVASTATIN 40 MG TAB PO SCH (21:15)
--- NOTE | 2024-11-06 21:51 | Electrocardiogram Report ---
Test Reason : Blood Pressure : */* mmHG Vent. Rate : 58 BPM Atrial Rate : 58 BPM P-R Int : 158 ms QRS Dur : 148 ms QT Int : 514 ms P-R-T Axes : 34 21 110 degrees QTcB Int : 504 ms Sinus bradycardia Left bundle branch block Abnormal ECG When compared with ECG of 07-Aug-2021 19:17, Left bundle branch block is now Present Confirmed by Chi Calle ([id number]) on 11/06/2024 9:51:14 PM Referred By: [facility] Confirmed By: Chi Calle
--- NOTE | 2024-11-06 21:51 | Electrocardiogram Report ---
Test Reason : Blood Pressure : */* mmHG Vent. Rate : 56 BPM Atrial Rate : 56 BPM P-R Int : 146 ms QRS Dur : 160 ms QT Int : 536 ms P-R-T Axes : 11 15 101 degrees QTcB Int : 517 ms Sinus bradycardia Left bundle branch block Abnormal ECG When compared with ECG of 05-Nov-2024 20:05, No significant change was found Confirmed by Chi Calle ([id number]) on 11/06/2024 9:51:22 PM Referred By: [facility] Confirmed By: Chi Calle
[2024-11-07 08:30] LABS: Basophils # (auto) 0.02 K/uL (0.00-0.20); Basophils % (auto) 0.3 %; Hematocrit (blood only) 35.4 % (42.0-52.0); Hemoglobin 11.2 g/dl (14.0-18.0); Immature Granulocytes # (auto) 0.02 K/uL (0.01-0.20); Immature Granulocytes % (auto) 0.3 %; Lymphocytes # (auto) 1.54 K/uL (1.20-3.40); Lymphocytes % (auto) 22.9 %; Mean Corpuscular Hemoglobin 24.7 pg (25.0-34.0); Mean Corpuscular Hgb Conc 31.6 g/dL (32.0-36.0); Mean Corpuscular Volume 78.1 fL (80.0-100.0); Monocytes # (auto) 0.75 K/uL (0.11-0.59); Monocytes % (auto) 11.2 %; Neutrophils # (auto) 4.19 K/uL (1.40-6.50); Neutrophils % (auto) 62.3 %; Platelet Count 226 K/uL (130-400); RDW Coefficient of Variation 14.6 % (11.5-14.5); Red Blood Count 4.53 M/uL (4.70-6.10); White Blood Count 6.72 K/ul (4.8-10.8)
[2024-11-07 08:41] LABS: BUN Creatinine Ratio 13.8 (10-20); Calcium 8.5 mg/dl (8.6-10.3); Creatinine Clr Calc Pharmacy 51.1 ml/min; Potassium 4.3 mmol/L (3.5-5.1)
[2024-11-07] MEDS ORDERED: REGADENOSON 0.4 MG/5 ML SYR IV ONE (09:25)
[2024-11-07] MEDS: ISOSORBIDE MONO EXTENDED REL 60 MG TABCR PO SCH (10:34)
--- NOTE | 2024-11-07 12:02 | Cardiology Progress Note ---
Date of Service November 07, 2024 Assessment & Plan (1) Chest pain: (2) LBBB (left bundle branch block): Plan: Pharmacologic nuclear stress test performed and patient tolerated the procedure well. EKG portion of the test is equivocal for excluding ischemia due to the presence of the underlying left bundle branch block. Further recommendations to be forthcoming after the perfusion images are available for review. Therapeutics: Continue aspirin, Brilinta, ranolazine, metoprolol, atorvastatin Imdur. Admission and Anticipated Discharge Date Admission Date: November 05, 2024 Subjective Patient seen prior to, during, and after pharmacologic nuclear stress test today. Patient feeling overall improved. Perhaps 1 brief vague episode of chest tightness this morning. Physical Exam Physical Exam: General: no acute distress and stated age Eyes: conjunctiva are pink and non-injected, sclera clear Neck: normal jugular venous pulse, no hepatojugular reflux Chest: normal shape and normal respiratory effort Lungs: clear to auscultation and percussion Cardiac Exam: - regular heart sounds, no murmurs, rubs, or gallops, no jugular venous distention Abdomen: abdomen soft, non-tender, no abnormal masses and no hepatosplenomegaly Musculoskeletal: no gait disturbance, no weakness Extremities: no edema and no cyanosis Neuro:awake, conversant, follows commands, no focal motor deficits Psych: appropriate affect and insight. Results & Data Vital Signs (Past 12 Hours) Vital Signs Pulse Pulse Resp BP BP Pulse Ox O2 Del Method 11/07/24 10:09 68 14 154/85 H 95 Room Air 11/07/24 08:06 58 L 16 149/80 H 99 Room Air 11/07/24 08:02 55 L 11/07/24 07:12 56 L 12 149/80 H 95 Room Air 11/07/24 06:00 55 L 18 160/88 H 97 Room Air 11/07/24 05:31 50 L 11/07/24 05:00 55 L 97 Room Air 11/07/24 04:03 64 16 149/83 H 93 Room Air 11/07/24 02:33 58 L 20 96 Room Air 11/07/24 02:19 58 L 18 159/107 H 96 Room Air 11/07/24 00:29 63 20 154/89 H 100 Nasal Cannula Laboratory Results CBC 11/07/24 Range/Units 07:38 WBC 6.72 (4.8-10.8) K/ul RBC 4.53 L (4.70-6.10) M/uL Hgb 11.2 L (14.0-18.0) g/dl Hct 35.4 L (42.0-52.0) % Plt Count 226 (130-400) K/uL Neut # (Auto) 4.19 (1.40-6.50) K/uL Lymph # (Auto) 1.54 (1.20-3.40) K/uL [place] # (Auto) 0.75 H (0.11-0.59) K/uL Eos # (Auto) 0.20 (0.00-0.50) K/uL Baso # (Auto) 0.02 (0.00-0.20) K/uL Comprehensive Metabolic Panel 11/07/24 Range/Units 07:38 Sodium 141 (136-145) mmol/L Potassium 4.3 (3.5-5.1) mmol/L Chloride 107 (98-107) mmol/L Carbon Dioxide 30 (21-32) mmol/L BUN 21 (6-23) mg/dl Creatinine 1.52 H (0.6-1.4) mg/dl Glucose 125 H (70-99(Fasting)) mg/dl Calcium 8.5 L (8.6-10.3) mg/dl Intake and Output 11/06/24 11/07/24 11/07/24 22:59 06:59 14:59 Intake Total 1000 / 1000 Output Total 400 / 1850 1450 / 1850 Balance 600 / -850 -1450 / -850 Intake: IV 1000 / 1000 Sodium Chlor 0.45% + 20Meq KCl 1000 / 1000 20 meq In 1,000 ml @ 50 mls/hr IV .Q20H ONE Rx#:[id number] Output: Urine 400 / 1850 1450 / 1850 Other: Other Intake Source Pt. ate 100% of lunch tray.
--- NOTE | 2024-11-07 13:56 | Communication Note ---
Date of Service: November 07, 2024 The nuclear stress test was abnormal and suggestive of right coronary territory ischemia. Test results discussed with patient. Options of ongoing medication therapy or proceeding with invasive coronary angiography discussed. Patient would like to proceed with coronary angiography which will be performed today.
--- NOTE | 2024-11-07 13:56 | Myocardial Perfusion Study ---
Date of Service November 07, 2024 Myocardial Perfusion Study [facility] Myocardial Perfusion Study Report Procedure: 1. Myocardial perfusion study performed in multiple views/images 2. Lexiscan pharmacologic stress ECG Indications: 1. Chest discomfort 2. Known history of complex multivessel coronary heart disease Ordering physician: Geronimo Mayberry DO Procedural details: For the stress portion of the study, Lexiscan 0.4 mg was intravenously administered followed by a saline flush. This was followed by 31.48 mCi of technetium 99m Cardiolite, injected at 11:26 am, on 11/07/24. 30 minutes following the injection, imaging of the heart was performed in multiple projections. For the rest portion of the study, 10.2 mCi technetium 99m Cardiolite was injected intravenously at 9:25 am on 11/07/24. 1 hour following the injection, imaging of the heart was performed in the same projections. Lexiscan stress ECG: Baseline EKG revealed sinus bradycardia at 56 bpm with left bundle branch block. The stress EKG response is nondiagnostic for excluding ischemia due to the presence of the underlying left bundle branch block. No arrhythmias were observed. The resting heart rate of 56 bpm layla to a maximum of 81 bpm. This value represents 54% of maximal age-predicted heart rate. The resting blood pressure 147/77 layla to a maximum blood pressure of 156/74. Stress test was terminated having reached the end of the predetermined protocol Findings: Rotating raw imaging demonstrated no significant lung uptake. There is no significant motion artifact. Heart size appeared mildly enlarged. Myocardial perfusion demonstrated a moderate-sized reversible perfusion defect encompassing the basal and mid segments of the inferior wall. Ejection fraction: 34% % Wall motion: Abnormal septal motion, otherwise moderate diffuse left ventricular hypokinesis No significant transient ischemic dilation. Impression: 1. The regadenoson myocardial perfusion imaging study is abnormal with a moderate-sized reversible inferior perfusion defect concerning for ischemia in the right coronary artery territory. 2. The stress EKG response is nondiagnostic for excluding ischemia due to the presence of the underlying left bundle branch block. 3. The post pharmacologic stress ejection fraction was mildly reduced at 34%. 4. No chest discomfort was reported with pharmacologic stress. The heart rate and blood pressure responses to pharmacologic stress were normal.
--- NOTE | 2024-11-07 14:46 | Pre Anesthesia Assessment ---
Date of Service November 07, 2024 Pre Sedation Assessment Vital Signs Pulse Pulse Resp BP BP Pulse Ox Pulse Ox 11/07/24 14:18 73 14 11/07/24 12:45 56 L 22 137/76 99 11/07/24 10:09 68 14 154/85 H 95 11/07/24 08:06 58 L 16 149/80 H 99 11/07/24 08:02 55 L 11/07/24 07:12 56 L 12 149/80 H 95 11/07/24 06:00 55 L 18 160/88 H 97 11/07/24 05:31 50 L 11/07/24 05:00 55 L 97 11/07/24 04:03 64 16 149/83 H 93 11/07/24 02:33 58 L 20 96 11/07/24 02:19 58 L 18 159/107 H 96 11/07/24 00:29 63 20 154/89 H 100 11/07/24 00:00 96 11/06/24 21:00 73 13 147/84 H 100 11/06/24 15:30 55 L O2 Del Method O2 Del Method O2 Flow Rate O2 Flow Rate 11/07/24 14:18 11/07/24 12:45 Room Air 11/07/24 10:09 Room Air 11/07/24 08:06 Room Air 11/07/24 08:02 11/07/24 07:12 Room Air 11/07/24 06:00 Room Air 11/07/24 05:31 11/07/24 05:00 Room Air 11/07/24 04:03 Room Air 11/07/24 02:33 Room Air 11/07/24 02:19 Room Air 11/07/24 00:29 Nasal Cannula 11/07/24 00:00 Nasal Cannula 2 11/06/24 21:00 Nasal Cannula 2 11/06/24 15:30 Cardiovascular + regular rate Respiratory + respiratory effort normal Pre-Sedation Airway Assessment Smoking Status: Never smoker Hx Sleep Apnea: No Hx Difficult Intubation: No Short, Thick Neck: No Thyromental Distance: > or= 3.5 Finger Breadths Oral Cavity: + WNL Mallampati Class: III ASA: ASA3 NPO Status Date of Last Intake of Fluids: 11/07/24 Time of Last Intake of Fluids: 14:00 Date of Last Intake of Solid Food: 01/02/25 Time of Last Intake of Solid Foods: 14:00 Procedure Planning Contraindications for Sedation: none Current Medications Reviewed: Yes Notes The planned sedation has been discussed with the patient. Informed Consent was obtained. I have identified the patient, determined the appropriateness of sedation and have assessed the patient immediately prior to the procedure. All medicine(s) and interventions are by my order.
--- NOTE | 2024-11-07 15:13 | Post Anesthesia Assessment ---
Date of Service November 07, 2024 Post Sedation Assessment Vital Signs Pulse Pulse Resp BP BP Pulse Ox Pulse Ox 11/07/24 14:18 73 14 11/07/24 12:45 56 L 22 137/76 99 11/07/24 10:09 68 14 154/85 H 95 11/07/24 08:06 58 L 16 149/80 H 99 11/07/24 08:02 55 L 11/07/24 07:12 56 L 12 149/80 H 95 11/07/24 06:00 55 L 18 160/88 H 97 11/07/24 05:31 50 L 11/07/24 05:00 55 L 97 11/07/24 04:03 64 16 149/83 H 93 11/07/24 02:33 58 L 20 96 11/07/24 02:19 58 L 18 159/107 H 96 11/07/24 00:29 63 20 154/89 H 100 11/07/24 00:00 96 11/06/24 21:00 73 13 147/84 H 100 11/06/24 15:30 55 L O2 Del Method O2 Del Method O2 Flow Rate O2 Flow Rate 11/07/24 14:18 11/07/24 12:45 Room Air 11/07/24 10:09 Room Air 11/07/24 08:06 Room Air 11/07/24 08:02 11/07/24 07:12 Room Air 11/07/24 06:00 Room Air 11/07/24 05:31 11/07/24 05:00 Room Air 11/07/24 04:03 Room Air 11/07/24 02:33 Room Air 11/07/24 02:19 Room Air 11/07/24 00:29 Nasal Cannula 11/07/24 00:00 Nasal Cannula 2 11/06/24 21:00 Nasal Cannula 2 11/06/24 15:30 Recovery Score Activity: Moves 4 extremities Respiration: Deep Breath/Cough Circulation: +/-20% PreAnes Value Consciousness: Fully Awake Oxygen Saturation: O2 needed for >90% Discharge Sedation Level of Care: Fast Track Phase II Post Sedation Plan On clinical assessment, the patient appears to have tolerated the sedation without complications. Patient is recovering as anticipated. Patient will continue to be monitored by nursing and may be discharged when sedation discharge criteria are met per below protocol. Upon Completions of procedure up to 15 minutes continue every 5 minute vital signs and the P.A.R. score; then discharge to a Phase I or Fast Track to Phase II per the following guidelines: * Discharge Patient to appropriate Phase II area if PAR is 8 or greater or return to pre- procedure baseline. The post - procedure orders will be as directed. * If PAR score is less than 8 or not return to pre-procedure baseline then patient will follow Phase I monitoring till PAR is reached for Phase II. The Phase I may be done in procedure room or may call to secure a Phase I area. * If naloxone or flumazenil are used for reversal, hold in Phase I for continued monitoring from when last reversal dose was given for a minimum of 60 minutes or longer pending the nurse and/or physician discretion of patient condition before discharge to Phase II. Please call the Sedation Physician to re-evaluate and complete post-note for discharge to Phase II area. Do NOT discharge from procedure sedation or Phase 1 until post- sedation evaluation note is complete by procedure /sedation MD Sedation Discharge Instructions to be given to the patient at discharge to home.
[2024-11-07] MEDS: niCARdipine 2,000 MCG/20 ML SYR ONE (15:14)
[2024-11-07] MEDS: MIDAZOLAM HCL 1 MG/ML 2ML VIAL ONE (15:14)
[2024-11-07] MEDS: HEPARIN (PORCINE) 1000 UNIT/ML 10 ML (CATH LAB USE ONLY) ONE (15:14)
[2024-11-07] MEDS: IODIXANOL (VISIPAQUE) 320 MG/ML 100ML IV ONE (15:15)
[2024-11-07] MEDS: NITROGLYCERIN/D5W 100MCG/ML 20ML SYR ONE (15:15)
[2024-11-07] MEDS: fentaNYL citrate PF 100 MCG/2 ML VIAL ONE (15:15)
--- NOTE | 2024-11-07 15:16 | Cardiac Catheterization ---
[facility] Data: Coroner Forensic Technician Cardiac Status Clinical evaluation leading to the procedure CAD Presenation: Positive Stress Test Diagnostic Physicians Name: Poncho Bianchi MD Closure Device Recommendations: Medical Therapy and/or Counseling Cardiac Cath Procedure Full Procedure Date November 07, 2024 Pre-Procedure Diagnosis Pre-Procedure Diagnosis: Positive Stress Test and CAD AUC Score AUC Score: 7 Post-Procedure Diagnosis Post-Procedure Diagnosis: Severe CAD and Normal Intracardiac Pressures Procedure(s) Performed Procedure(s) Performed: Coronary Angiography and Left Heart Cath Cardroom Drawing Runner Poncho Bianchi MD Vehicle Upholsterer(s) [place] Estimated Blood Loss Estimated Blood Loss: 5 Medication(s) Medication(s): Fentanyl, Heparin, Lidocaine 1%, Nicardipine, Nitroglycerin and Versed Summary of Findings Indication: Abnormal stress test. History of CAD Access: 6 Fr right radial artery Catheters: [place] Findings: LM -normal caliber, 20% distal stenosis LAD -heavily calcified, medium caliber. 30% diffuse proximal to mid disease. Mid segment stent widely patent. 20-30% distal vessel disease. Small D1 with moderate diffuse disease. Small heavily calcified D2 with 98% mid stenosis. Circumflex -medium caliber, mid circumflex into OM3 stents widely patent without ISR. RCA -dominant, medium caliber, heavily calcified, 50% diffuse mid segment in- stent restenosis. Distal RCA stent with 30% in-stent restenosis. Small PDA without significant disease. Distal right posterolateral branch 75% stenosis prior to terminal PLB. Proximal right PLB with 50% proximal stenosis LVEDP -4 Arterial Closure: TR band Summary: 1. Multivessel coronary artery disease -50% mid RCA in-stent restenosis. Distal RCA 30% ISR. Distal RPLB 75%. 30% diffuse proximalmid LAD. Mid LAD stent patent. Small D2 with 98% mid stenosis Mid circumflex into OM3 stents widely patent 2. Normal intracardiac filling pressure Recommendations: No high risk major epicardial coronary artery disease Plan on continued medical management with additional antianginal therapy per Dr. Mayberry. Hemodynamics Rest Ao:: 112/53/84 Final Ao: 132/66/82 LV: 110/4 Recommendations Recommendations: Medical Therapy and/or Counseling Radiation Exposure (mGy) 851 Contrast (mls) 35 Anesthesia Moderate [id number] Procedural Complication(s) None Disposition PCU I attest to the content of the Intraoperative Record and any orders documented therein. Any exceptions are noted below. [facility] Card Cath Procedure Codes Cardiac Catheterization Procedure 1: Cardiovascular Cath Procedures: 68549 Coronaries and LHC (+/-LV) Moderate Sedation Procedure 1: Sedation/Anesthesia: 70649 Mod Sedation by the same physician;Init15 Min Child Age 5 & Up PG Care Time/CCT Total # of Minutes Spent Total Time Spent with Patient: Total time spent is greater than 50% in coordination of care (as documented) at patient's floor/unit and/or counseling patient:
[2024-11-07 16:11] VITALS: RESP 16; O2SAT 98
--- NOTE | 2024-11-07 16:19 | Communication Note ---
Date of Service: November 07, 2024 Cardiac catheterization films reviewed independently. Case discussed with Dr. Bianchi of interventional cardiology. Diagonal 2 stenosis noted and similar to that described in cardiac catheterization report from [facility] in 2020. Mid RCA and distal RCA territory disease present but felt to be best managed medically. Technically complex high risk mid RCA intervention could be considered if patient had refractory symptoms, but given his current clinical presentation medical management felt to be indicated. With regards to his ejection fraction. I think the echocardiogram measurement of 45 to 50% is more accurate than the nuclear stress (gated SPECT) measurement of 34% in this case. Outpatient cardiology follow-up with our group or his previous provider group recommended and could be arranged by the [facility] institution.
--- NOTE | 2024-11-07 16:48 | Discharge Summary ---
Date of Service November 07, 2024 Admission HPI Per Admitting Provider History obtained from patient and records. Medical history significant for CAD status post stent, VT/PSVT as per records, hypertension, hyperlipidemia, DM2 insulin requiring, CRI (baseline creatinine 1.6), chronic anemia (baseline hemoglobin 10-11), colon cancer status post surgery, GERD. Last confinement August 2021 for chest pain. NSVT during confinement. Beta-nasir dose increased on discharge. Patient stressed out the last couple of weeks after being moved to a new [facility]. He had left-sided chest discomfort today similar to anginal attacks in the past but not as bad. Symptoms improved by aspirin and nitroglycerin Rx. Patient unaware of blood pressure control at correctional facility. Loop recorder placed by [place] rehabilitation caseworker few months ago for fast heartbeat. Patient feels sweaty during episodes. No recent episodes. New left bundle branch block noted on EKG. Nitropaste administered at the ER. Patient currently comfortable. Medical History as above Surgical History : Bowel surgery Family History : DM Personal/Social history : Non-smoker, no EtOH intake, prior work as a [employer] Admission Exam Per Admitting Provider GENERAL: Comfortable, obese, pleasant, no respiratory distress SKIN: Pallor, warm HEENT: Wearing sunglasses, pale palpebral conjunctivae, no ptosis, moist buccal mucosa NECK : Supple, short neck, no tenderness CHEST : CTA, no tenderness HEART : RRR, no obvious murmurs ABDOMEN: Some distention, nontender EXTREMITIES : nol LE swelling, no LE tenderness, no other conspicuous deformities noted NEUROLOGIC : Coherent, no facial asymmetry, no other gross focality Principal Diagnosis Chest pain, ACS ruled out Discharge Exam GENERAL: Comfortable, , pleasant, no respiratory distress SKIN: Pallor, warm HEENT: Wearing sunglasses, pale palpebral conjunctivae, no ptosis, moist buccal mucosa NECK : Supple, short neck, no tenderness CHEST : CTA, no tenderness HEART : RRR, no obvious murmurs ABDOMEN: Some distention, nontender EXTREMITIES : nol LE swelling, no LE tenderness, no other conspicuous deformities noted NEUROLOGIC : Coherent, no facial asymmetry, no other gross focality Discharge Data Allergies Allergy/AdvReac Type Severity Reaction Status Date / Time sulfamethoxazole Allergy Unknown Unverified 08/07/21 19:33 [From Bactrim] trimethoprim [From Bactrim] Allergy Unknown Unverified 08/07/21 19:33 Consultations 11/05/24 23:33 Consult Cardiology Routine Procedures Performed Operation Date: 11/07/24 14:00 Actual Procedures p Cineradiography w/Routine Exam - Poncho Bianchi MD p Cath, Left with Cors and Vent - Poncho Bianchi MD Ordered Studies 11/07/24 13:56 CL Cath Imgs for PACS use only Stat Hospital Course (1) Chest pain: Chest pain hx of CAD status post stent Patient presented with chest pain. Reported history of CAD status post stent EKG shows normal sinus rhythm with left bundle branch block; EKG from 2020 did not have LBBB High sensitive troponin negative Echo shows mild concentric LVH; EF of 45 to 50%; small mobile echodensity visualized on the aortic side of left coronary aortic valve Cusp. Findings may be represent sclerosis, lambl excrescence, thrombus, mass or vegetations. Grade 1 diastolic dysfunction Patient underwent nuclear stress test; was found to be abnormal and suggestive of right coronary territory ischemia. Patient underwent cardiac cath; mid RCA and distal RCA territory disease was found to be present but felt to be based managed medically. Patient did not have any recurrence of chest pain during the hospitalization. No medication changes were done. Patient was discharged to correctional facility with instructions to follow-up with his rehabilitation caseworker. Text document was generated using netTALK voice recognition software. It may contain grammatical or spelling errors. Kindly contact undersigned for clarification of any documentation item in question. Total Time Total Time Spent Total Time Spent (In Minutes): 56 Total Time Includes: Examination of the Patient, Discharge Planning, Medication Reconciliation, Communication With Other Providers and Other Discharge Plan Discharge Items Patient Disposition: Correctional Facility Reason For Visit: CP, HYPOMAG Discharge Diagnosis: Chest pain, ACS ruled out Activity: Resume your previous activity Non-emergency contact: Primary Care Provider Call non-emergency contact if: you have any medication questions and your symptoms worsen Follow-up/Referrals: Perez SOLIS [Primary Care Provider] - Diet: Regular Addtl Attending Provider Instructions: You are admitted to the hospital due to chest pain. Underwent cardiac cath by cardiology; no stent was placed. They recommend that you continue to take the medication you are taking previously. Pending Studies at Discharge: No Stand-Alone Forms: My [facility] Skilled Items Patient informed of condition?: Yes Discharge Level of Care: Other Communicable Disease: No Discharge Prognosis: Stable Lines: None Urinary Catheter: No Medications and DC Order Prescriptions: Continued atorvastatin 40 mg Tablet 40 mg PO PM lisinopril 20 mg Tablet 20 mg PO DAILY omeprazole 40 mg Capsule,Delayed Release(Dr/Ec) 40 mg PO DAILY aspirin [Laura Low Dose Aspirin] 81 mg Tablet,Delayed Release (Dr/Ec) 81 mg PO DAILY isosorbide mononitrate 60 mg Tablet Extended Release 24 Hr 60 mg PO DAILY ferrous sulfate 325 mg (65 mg iron) Tablet 325 mg PO BID metformin 1,000 mg Tablet 1,000 mg PO BID calcium polycarbophil [Fiber-Lax] 625 mg Tablet 1,250 mg PO BID nitroglycerin 0.4 mg Tablet, Sublingual 0.4 mg sublingual UD vitamin B complex Capsule 1 cap PO DAILY Novolin 70-30 FlexPen U-100 100 unit/mL (70-30) Insulin Pen 48 unit SUBCUT BID ranolazine 500 mg Tablet Extended Release 12 Hr 500 mg PO BID Brilinta 90 mg Tablet 90 mg PO BID metoprolol tartrate 25 mg tablet 50 mg PO BID Discharge Orders: Discharge Order (Routine); Ordered 11/07/24 Ordered By: Akbar Tejeda/Other Patient Handouts: Managing Type 2 Diabetes Admission Data Admit Date/Time: 11/05/24 23:02 Attending Provider: Akbar Haney Admit Provider: Lionel Hdez Primary Care Provider: Perez SOLIS Other Providers: Elle Slater; Geronimo Mayberry; Toby Sanchez; Darian Pacheco; Timo Ramsey; Gabriel Boggs; Melina Oneal; Sherrie Razo; Shannan Glez; Elle Valente; Ferny Molina; Nick Lim; Lian Olmstead; Gabbie Joyner; Nabila Pelaez; Calli Roberts; Thang Mendoza; Nicolle Bob; Sabrina Vela
[2024-11-07 19:18] VITALS: PULSE 55; TEMP 98.1
[2024-11-07 19:22] VITALS: BP 132/85
== END 2024-11-07 20:20 | DRG 287 ==
LOC: ED 20:00 → EDINP 23:02 → 2S 11-07 16:28